=== PATIENT | female | born 1955 | race Caucasian/White ===

== ENCOUNTER 2021-12-11 09:25 | Outpatient (REF) | payer OTHER, SELFPAY ==
--- NOTE | ~2021-12-11 | MM_ITS ---
EXAMINATION: MM SCREENING DIGITAL BREAST TOMOSYNTHESIS, BILATERAL CLINICAL INFORMATION: Screening. Asymptomatic. The lifetime risk of breast cancer based on the Tyrer-Cuzick Model is 8%. COMPARISON: Mammography: 07/17/2016 TECHNIQUE: Digital breast tomosynthesis is performed in both the craniocaudal and mediolateral oblique views along with computer-aided detection (CAD). Synthesized 2D images are generated from the tomosynthesis. Additional left MLO view is provided. FINDINGS: There are scattered areas of fibroglandular density (ACR BI-RADS breast composition Category b). There is fine fibronodular parenchymal pattern similar to prior exam. There is no interval significant mass or architectural abnormality or abnormal calcifications. Heavily calcified mass/cyst is again noted mid lower inner right breast. Just anterior to this is at a small oil cyst with interval benign rim calcifications. The axilla are unremarkable. Skin contours are smooth. MM/MM tomosynthesis screening BI IMPRESSION: No significant changes from prior exam 2015. ASSESSMENT: BI-RADS 2: Benign RECOMMENDATION: Routine annual mammography screening. This patient's information was entered into a reminder system with a target due date for their next mammogram.
== END 2021-12-11 09:26 | disposition home or self-care (01) ==
LOC: HO.MAMMO 09:25
PROVIDERS: PCP General Practice; Visit Provider General Practice
DX: Z12.31 Encounter for screening mammogram for malignant neoplasm of breast (principal)
CPT/HCPCS: 77063; 77067

== ENCOUNTER → 2022-06-28 12:33 | Outpatient (BNVA) | payer MEDICARE, SELFPAY | PROVIDERS: PCP General Practice; Referring Provider General Practice; Visit Provider Nurse Practitioner | DX: K91.5 Postcholecystectomy syndrome (principal); K21.9 Gastro-esophageal reflux disease without esophagitis; K64.9 Unspecified hemorrhoids | CPT/HCPCS: 99202 ==

== ENCOUNTER → 2022-07-26 09:06 | Outpatient (BNVA) | payer MEDICARE, MEDICAID, SELFPAY | PROVIDERS: PCP General Practice; Referring Provider General Practice; Visit Provider Nurse Practitioner | DX: K91.5 Postcholecystectomy syndrome (principal); R21 Rash and other nonspecific skin eruption; K21.9 Gastro-esophageal reflux disease without esophagitis; D12.6 Benign neoplasm of colon, unspecified | CPT/HCPCS: 99212 ==

== ENCOUNTER 2022-08-10 12:54 | Emergency (ER) | payer MEDICARE, MEDICAID, SELFPAY ==
--- NOTE | ~2022-08-10 | XR_ITS ---
EXAMINATION: XR ankle RT 2V CLINICAL INFORMATION: Reason for Exam post reduction COMPARISON: None. TECHNIQUE: AP, lateral, and oblique views of the ankle XR/XR ankle RT 2V FINDINGS/IMPRESSION: * Overlying casting material limits evaluation of fine bony detail. There has been interval reduction of the previously seen foot and ankle dislocation, now in anatomic alignment. * Diffuse soft tissue swelling about the ankle. * Redemonstration of the previously seen fracture of the base of the fifth metatarsal. Previously described subtle lucency in the calcaneus is not appreciated on this exam.
--- NOTE | ~2022-08-10 | XR_ITS ---
EXAMINATION: XR ankle RT min 3V, XR foot RT 2V CLINICAL INFORMATION: Reason for Exam R ANKLE INJURY COMPARISON: None. TECHNIQUE: AP, lateral, and oblique views of the ankle and 2 views of the foot XR/XR foot RT 2V FINDINGS/IMPRESSION: * Talonavicular, tibiotalar and subtalar dislocation. * Mildly displaced avulsion fracture of the base of the fifth metatarsal. * Question of possible subtle lucency through the calcaneus however only appreciated on this single view which could potentially reflect nondisplaced calcaneal fracture. * Given constellation of findings, recommend CT foot for further evaluation.
--- NOTE | ~2022-08-10 | CT_ITS ---
EXAMINATION: CT SCAN OF THE RIGHT ANKLE CLINICAL INFORMATION: Evaluate for calcaneal fracture trauma. COMPARISON: X-rays of the right ankle and foot performed earlier the same day. TECHNIQUE: CT scan of the right ankle was performed with reconstruction imaging performed at the acquisition workstation. FINDINGS: The alignment of the tarsal bones remains intact after reduction of talar dislocation There is a small osseous fragment abutting the posterior medial aspect of the talus compatible with a small avulsion fracture, age indeterminant. This fragment measures 6 x 2 x 7 mm. Additional osseous fragments distal to the fibula more likely reflect ossicles than acute fracture fragments. The calcaneus is intact. No fracture. Small calcaneal spur. There is a nondisplaced/minimally displaced fracture of the base of the 5th metatarsal. The fracture gap measures up to 1.5 mm. No additional fractures. There is a small focus of gas in the subcutaneous soft tissues anteriorly at the level of the midfoot of the overlying skin appears intact. 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 There is generalized circumferential increased density anterior laterally. This could reflect a combination of edema and soft tissue contusion/hematoma. CT/CT ankle RT wo IV con IMPRESSION: Small fracture fragment abutting the posterior medial aspect of the talus compatible with avulsion fracture, age indeterminant. Given recent dislocation this is likely acute. No calcaneal fracture. Fracture of the base of the 5th metatarsal. Arthrosis of the midfoot. Subcutaneous abnormalities compatible with edema and soft tissue contusion. Trace gas within the dorsal soft tissues raising question of subtle soft tissue laceration not clearly identified.
--- NOTE | ~2022-08-10 | XR_ITS ---
EXAMINATION: XR ankle RT min 3V, XR foot RT 2V CLINICAL INFORMATION: Reason for Exam R ANKLE INJURY COMPARISON: None. TECHNIQUE: AP, lateral, and oblique views of the ankle and 2 views of the foot XR/XR ankle RT min 3V FINDINGS/IMPRESSION: * Talonavicular, tibiotalar and subtalar dislocation. * Mildly displaced avulsion fracture of the base of the fifth metatarsal. * Question of possible subtle lucency through the calcaneus however only appreciated on this single view which could potentially reflect nondisplaced calcaneal fracture. * Given constellation of findings, recommend CT foot for further evaluation.
[2022-08-10 13:01] VITALS: BP 147/87; PULSE 100; RESP 16; TEMP 36; O2SAT 95; BMI 26.5
[2022-08-10 13:56] LABS: MANUAL DIFF FLAG NO
[2022-08-10 13:58] LABS: Basophils Absolute Auto 0.1 X10*3/uL (0.0-0.2); Basophils Percent Auto 0.5 % (0-2); Eosinophils Absolute Auto 0.1 X10*3/uL (0.0-0.4); Hematocrit 39.4 % (37.0-47.0); Imm Gran Abs Auto 0.04 X10*3/uL (0.00-0.03); Imm Gran Pct Auto 0.3 % (0.0-0.4); Mean Corpuscular Hemoglobin 30.2 pg (27.0-33.0); Mean Corpuscular Volume 91.6 fL (80.0-98.0); Monocytes Absolute Auto 0.7 X10*3/uL (0.1-1.2); Neutrophils Percent Auto 67.2 % (45-73); Platelet Count 402 X10*3/uL (160-400); Red Cell Distribution Width 13.1 % (11.0-16.0)
[2022-08-10] MEDS: Morphine Sulfate 4 MG/ML CARTRIDGE IVPUSH (13:59)
[2022-08-10] MEDS: ondansetron HCL 4 MG/2 ML VIAL IVPUSH (13:59)
[2022-08-10] MEDS: Lidocaine HCl 1 % MPF 2 ML VIAL INFILTRATI (14:02)
[2022-08-10 14:10] LABS: Anion Gap 17 (12-20); Blood Urea Nitrogen 14 mg/dL (9-16); Calcium 9.2 mg/dL (8.4-10.2); Carbon Dioxide 23 mmol/L (22-29); Chloride 106 mmol/L (96-108); Creatinine Clr Calc Pharmacy 68.4; Estimated Glomerular Filt Rate > 60; Glucose Random 133 mg/dL (60-115); Potassium 4.2 mmol/L (3.3-5.1); Sodium 142 mmol/L (135-145)
--- NOTE | 2022-08-10 14:12 | ED.LOWEXIN ---
HPI - Extremity Injury (Lower) General Chief Complaint: Extremity Injury, Lower Stated Complaint: R ANKLE INJ Time Seen by Provider: 08/10/22 13:19 Related Data Home Medications Medication Instructions Recorded Confirmed acetaminophen 500 mg tablet 500 - 1,000 mg PO Q8H PRN 06/28/22 albuterol sulfate 90 mcg/actuation 2 puff inhalation Q4H PRN 06/28/22 aerosol inhaler (Ventolin HFA) fluticasone 250 mcg-salmeterol 50 1 ea inhalation BID 06/28/22 mcg/dose blistr powdr for inhalation fluticasone propionate 50 1 spray intranasal DAILY PRN 06/28/22 mcg/actuation nasal allergies spray,suspension ipratropium 0.5 mg-albuterol 3 mg ml inhalation Q6H PRN 06/28/22 (2.5 mg base)/3 mL nebulization soln loratadine 10 mg tablet 10 mg PO DAILY PRN allergies 06/28/22 omeprazole 20 mg capsule,delayed 20 mg PO DAILY 06/28/22 release sennosides 8.6 mg tablet (senna) 8.6 mg PO DAILY PRN constipation 06/28/22 trazodone 100 mg tablet 50 - 100 mg PO BEDTIME PRN 06/28/22 venlafaxine 150 mg 150 mg PO QAM 06/28/22 capsule,extended release 24 hr zolpidem 5 mg tablet 5 mg PO BEDTIME 06/28/22 Previous Rx's Medication Instructions Recorded sucralfate 1 gram tablet (Carafate) 2 g PO DAILY #60 tabs 07/25/22 fexofenadine 180 mg tablet 180 mg PO DAILY #30 tabs 07/26/22 (Diana Allergy) hydrocortisone 2.5 % topical 1 appl topical BID-TID PRN skin 07/26/22 ointment irritation #20 grams Allergies Allergy/AdvReac Type Severity Reaction Status Date / Time benedryl Allergy Mild rash Uncoded 07/26/22 09:48 cholestyramine AdvReac Intermediate rash Uncoded 07/26/22 09:22 PMFSH Past Medical History Surgical History H/O section H/O colonoscopy H/O total hysterectomy History of esophagogastroduodenoscopy (EGD) History of hysterectomy Hx of cholecystectomy Social History Social History Alcohol intake: never Patient Tobacco Use Status: Never used Tobacco Advance Directives: No Advance Directives Information Provided: Yes Physical Exam Vital Signs: Vital Signs: Last Vital Signs Temp 96.8 F 08/10/22 13:01 Pulse 100 08/10/22 13:01 Resp 16 08/10/22 13:01 BP 147/87 H 08/10/22 13:01 Pulse Ox 95 08/10/22 13:01 O2 Del Method 08/10/22 13:01 BMI result Body Mass Index 26.5 MDM - Extremity Injury (Lower) Lab Data Result diagrams: 08/10/22 13:51 08/10/22 13:51 Labs: Lab Results 08/10/22 08/10/22 Range/Units 13:51 13:51 WBC 12.0 H (4.8-10.8) X10*3/uL RBC 4.30 (4.20-5.50) X10*6/uL Hgb 13.0 (12.0-16.0) g/dl Hct 39.4 (37.0-47.0) % MCV 91.6 (80.0-98.0) fL MCH 30.2 (27.0-33.0) pg MCHC 33.0 (31.0-35.0) g/dl RDW 13.1 (11.0-16.0) % Plt Count 402 H (160-400) X10*3/uL MPV 9.0 L (9.4-12.3) fL Immature Gran % (Auto) 0.3 (0.0-0.4) % Neut % (Auto) 67.2 (45-73) % Lymph % (Auto) 25.0 (20-40) % [place] % (Auto) 6.0 (2-11) % Eos % (Auto) 1.0 (0-4) % Baso % (Auto) 0.5 (0-2) % Lymph # (Auto) 3.0 (1.2-4.9) X10*3/uL [place] # (Auto) 0.7 (0.1-1.2) X10*3/uL Eos # (Auto) 0.1 (0.0-0.4) X10*3/uL Baso # (Auto) 0.1 (0.0-0.2) X10*3/uL Abs Immat Gran (auto) 0.04 H (0.00-0.03) X10*3/uL Absolute Neuts (auto) 8.0 (2.0-8.3) x10*3/uL Absolute Nucleated RBC 0.000 (0.0-0.012) X10*3/uL Nucleated RBC % (auto) 0.0 (0.0-0.2) /100WBC Sodium 142 (135-145) mmol/L Potassium 4.2 (3.3-5.1) mmol/L Chloride 106 (96-108) mmol/L Carbon Dioxide 23 (22-29) mmol/L Anion Gap 17 (12-20) BUN 14 (9-16) mg/dL Creatinine 0.70 (0.5-1.4) mg/dL Estim Creat Clear Calc 68.4 Estimated GFR > 60 Random Glucose 133 H (60-115) mg/dL Calcium 9.2 (8.4-10.2) mg/dL Procedures Orthopedic Joint Reduction Joint #1: Time Out Performed: Yes Side: right Joint Reduction Location: ankle Analgesia: hematoma block Local Anesthesia: lidocaine 1% Amount of anesthesic used (mL): 10 Technique used: traction/counter-traction Post-reduction neuro exam: intact Post-reduction vascular: intact Post Reduction X-Ray Obtained: Yes Post Reduction X-Ray Results: reduced Splint Applied: Yes Patient Tolerated Procedure: well Discharge Plan Discharge Prescriptions: No Action sucralfate [Carafate] 1 gram tablet 2 g PO DAILY Qty: 60 3RF omeprazole 20 mg capsule,delayed release(DR/EC) 20 mg PO DAILY sennosides [senna] 8.6 mg tablet 8.6 mg PO DAILY PRN (Reason: constipation) trazodone 100 mg tablet 50 - 100 mg PO BEDTIME PRN fluticasone propion-salmeterol 250-50 mcg/dose blister with device 1 ea inhalation BID loratadine 10 mg tablet 10 mg PO DAILY PRN (Reason: allergies) fluticasone propionate 50 mcg/actuation spray,suspension 1 spray intranasal DAILY PRN (Reason: allergies) albuterol sulfate [Ventolin HFA] 90 mcg/actuation HFA aerosol inhaler 2 puff inhalation Q4H PRN zolpidem 5 mg tablet 5 mg PO BEDTIME acetaminophen 500 mg tablet 500 - 1,000 mg PO Q8H PRN venlafaxine 150 mg capsule,extended release 24hr 150 mg PO QAM ipratropium-albuterol 0.5 mg-3 mg(2.5 mg base)/3 mL solution for nebulization inhalation Q6H PRN fexofenadine [Diana Allergy] 180 mg tablet 180 mg PO DAILY Qty: 30 3RF hydrocortisone 2.5 % ointment 1 appl topical BID-TID PRN (Reason: skin irritation) Qty: 20 0RF
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
== END 2022-08-10 20:34 | disposition home or self-care (01) ==
PROVIDERS: Nurse Practitioner Family; Emergency Provider Emergency Medicine; PCP General Practice
DX: S93.04XA Dislocation of right ankle joint, initial encounter (principal); S92.351A Displaced fracture of fifth metatarsal bone, right foot, initial encounter for closed fracture; V18.0XXA Pedal cycle driver injured in noncollision transport accident in nontraffic accident, initial encounter; Y93.55 Activity, bike riding; Y92.414 Local residential or business street as the place of occurrence of the external cause; Y99.9 Unspecified external cause status
CPT/HCPCS: 27840; 36415; 64450; 73600; 73610; 73620; 73700; 80048; 85025; 96374; 96375; 99281; 99284; J2270; J2405

== ENCOUNTER → 2022-08-15 10:42 | Outpatient (BNVA) | payer MEDICARE, MEDICAID, SELFPAY | PROVIDERS: PCP General Practice; Visit Provider Physician Assistant | DX: S93.04XA Dislocation of right ankle joint, initial encounter (principal) | CPT/HCPCS: 29405; 99202 ==

== ENCOUNTER 2022-09-16 | Outpatient (REF) | payer MEDICARE, MEDICAID, SELFPAY ==
--- NOTE | ~2022-09-16 | XR_ITS ---
EXAMINATION: XR ANKLE, RIGHT CLINICAL INFORMATION: Pain COMPARISON: Previous x-ray and chest CT July 2022 TECHNIQUE: AP, lateral, and mortise views of the right ankle. FINDINGS: There is osteopenia. There is periosteal reaction seen on the lateral view adjacent to the posterior talus and posterior talar calcaneal joint. There is a minimally displaced fracture transverse fracture of the base of the fifth metatarsal bone. This appears unchanged. There are mild degenerative changes of the midfoot. There are calcaneal spurs. There is diffuse soft tissue swelling. XR/XR ankle RT min 3V IMPRESSION: Osteopenia. Cortical thickening or periosteal reaction seen on the lateral view adjacent to the posterior talus and posterior talar calcaneal joint. Unchanged minimally displaced fracture of the base of the fifth metatarsal bone.
== END 2022-09-16 00:01 ==
LOC: HO.HOSX
PROVIDERS: Visit Provider Physician Assistant
DX: M25.571 Pain in right ankle and joints of right foot (principal)
CPT/HCPCS: 73610

== ENCOUNTER 2022-10-14 | Outpatient (REF) | payer MEDICARE, MEDICAID, SELFPAY ==
--- NOTE | ~2022-10-14 | XR_ITS ---
XR/XR ankle RT min 3V IMPRESSION: 1. Nondisplaced fracture base fifth metatarsal unchanged in alignment. 2. No acute ankle fracture or dislocation. Bulky calcaneal spurs. EXAMINATION: XR ANKLE, RIGHT CLINICAL INFORMATION: Fractures, follow-up. COMPARISON: Right ankle radiographs 09/16/2022, CT right ankle 09/16/2022, radiographs right ankle and foot 08/10/2022. TECHNIQUE: AP, lateral, and mortise views of the right ankle. FINDINGS: Ankle mortise is symmetric. No acute fracture or dislocation. Nondisplaced fracture base fifth metatarsal unchanged in alignment. There are bulky posterior and plantar calcaneal spurs.
== END 2022-10-14 00:01 ==
LOC: HO.HOSX
PROVIDERS: Visit Provider Physician Assistant
DX: S92.354A Nondisplaced fracture of fifth metatarsal bone, right foot, initial encounter for closed fracture (principal); S93.04XA Dislocation of right ankle joint, initial encounter
CPT/HCPCS: 73610; 99212

== ENCOUNTER 2023-08-29 10:05 | Outpatient (REF) | payer MEDICARE, MEDICAID, SELFPAY ==
[2023-08-29 11:40] LABS: Estimated Average Glucose 103 mg/dL; Hemoglobin A1c % 5.2 % (<6.0)
[2023-08-29 12:02] LABS: Alanine Aminotransferase 13 U/L (0-31); Albumin Level 4.2 g/dL (3.5-5.0); Alkaline Phosphatase 67 U/L (39-117); Anion Gap 14 (12-20); Aspartate Amino Transferase 16 U/L (5-31); Bilirubin Total 0.3 mg/dL (0.0-1.0); Blood Urea Nitrogen 14 mg/dL (9-16); Calcium 9.4 mg/dL (8.4-10.2); Carbon Dioxide 26 mmol/L (22-29); Chloride 106 mmol/L (96-108); Cholesterol 165 mg/dL (<200); Estimated Glomerular Filt Rate > 60; Glucose Random 99 mg/dL (60-115); HDL Cholesterol 55 mg/dL (>40); LDL Cholesterol Calculated 84 mg/dL (<100); Potassium 4.6 mmol/L (3.3-5.1); Sodium 141 mmol/L (135-145); Total Protein 7.4 g/dL (6.5-8.0); Triglycerides 130 mg/dL (<150)
== END 2023-08-29 10:06 | disposition home or self-care (01) ==
LOC: HO.HHCL 10:05
PROVIDERS: Visit Provider General Practice
DX: Z00.00 Encounter for general adult medical examination without abnormal findings (principal)
CPT/HCPCS: 36415; 80053; 80061; 83036

== ENCOUNTER 2024-02-03 08:30 | Outpatient (REF) | payer OTHER, SELFPAY ==
--- NOTE | ~2024-02-03 | MM_ITS ---
EXAMINATION: MM SCREENING DIGITAL BREAST TOMOSYNTHESIS, BILATERAL CLINICAL INFORMATION: Screening. Asymptomatic. COMPARISON: Mammography: This study is compared with prior exams dating back to 2021. TECHNIQUE: Digital breast tomosynthesis is performed in both the craniocaudal and mediolateral oblique views along with computer-aided detection (CAD). Synthesized 2D images are generated from the tomosynthesis. FINDINGS: There are scattered areas of fibroglandular density (ACR BI-RADS breast composition Category b). There are no significant masses, abnormal calcifications, or other abnormalities. There are few, coarse benign calcifications in the lower inner quadrant of the right breast. MM/MM tomosynthesis screening BI IMPRESSION: No mammographic evidence of malignancy. ASSESSMENT: BI-RADS BI-RADS 2 - Benign Findings RECOMMENDATION: Routine annual mammography screening. 1 year F/U This examination should not preclude the clinical evaluation of a suspicious palpable abnormality. This patient's information was entered into a reminder system with a target due date for their next mammogram.
== END 2024-02-03 08:31 | disposition home or self-care (01) ==
LOC: HO.MAMMO 08:30
PROVIDERS: PCP General Practice; Visit Provider General Practice
DX: Z12.31 Encounter for screening mammogram for malignant neoplasm of breast (principal)
CPT/HCPCS: 77063; 77067

== ENCOUNTER → 2024-02-03 08:45 | Outpatient (BNV) | payer OTHER, SELFPAY | PROVIDERS: PCP General Practice; Visit Provider Radiology Diagnostic Radiology | DX: Z12.31 Encounter for screening mammogram for malignant neoplasm of breast (principal) | CPT/HCPCS: 77063; 77067 ==

== ENCOUNTER 2025-05-26 19:22 | Emergency (ER) | payer OTHER, SELFPAY ==
--- NOTE | ~2025-05-26 | XR_ITS ---
CLINICAL HISTORY: known covid 1 view chest x-ray Comparison: None provided Findings: No consolidation or effusion. Normal size heart. No acute fracture. IMPRESSION: 1. No acute findings. This document has been electronically signed by: Guero Cruz MD on 05/26/2025 22:03:46
[2025-05-26 19:46] VITALS: BP 161/80; PULSE 75; RESP 16; TEMP 37.1; O2SAT 96; BMI 26.5
--- OUTSIDE RECORDS SUMMARY | 2025-05-26 20:11 | XMS_ITS | Encounter Summary ---
Author Organization [facility] Address [address] [place] [address] Care Team Providers Care Molecular Pathologist Name Role Phone Jamar Conley NP, Erica Primary Care Provider Encounter Details Date Type Department Care Team (Late st Contact Info) Description 03/26/2025 Lab Requisition [facility] - Main Lab [address] [place] [address] Dipika Roldan NP [address] [place] [phone] Social History Tobacco Use Types Packs/Day Years Used Date Smoking Tobacco: Never Assessed Comments Unknown Sex and Gender Information Value Date Recorded Sex Assigned at Not on file Legal Sex Female 10:40 AM EDT Gender Identity Not on file Sexual Orientation Not on file documented as of this encounter Plan of Treatment Not on file documented as of this encounter Visit Diagnoses Not on filedocumented in this encounter Care Teams Molecular Pathologist Relationship Specialty Start Date End Date Dipika Roldan NP [address] [place] [id number] PCP - General Psychiatry 03/26/25 documented as of this encounter
[2025-05-26 22:05] VITALS: BP 165/89; PULSE 73; RESP 16; TEMP 36.8; O2SAT 96
--- NOTE | 2025-05-26 22:30 | ED.GENADULT ---
HPI - General Adult General Chief complaint: Upper Respiratory Symptoms Stated complaint: covid+/fever/sob still Time Seen by Provider: 05/26/25 20:27 Source: patient and family Limitations: language barrier History of Present Illness ED Provider: Catherine Figueroa PA-C HPI narrative: 70-year-old female with a history of GERD, constipation, asthma, depression and anxiety who presents with viral syndrome. Patient was diagnosed with the COVID-19 today by primary care. Associated generalized body aches, headache, congestion, ear pressure and dry cough. Related Data Home Medications ?Medication ?Instructions ?Recorded ?Confirmed acetaminophen 500 mg tablet 500 - 1,000 mg PO Q8H PRN 06/28/22 albuterol sulfate 90 mcg/actuation 2 puff inhalation Q4H PRN 06/28/22 aerosol inhaler (Ventolin HFA) fluticasone 250 mcg-salmeterol 50 1 ea inhalation BID 06/28/22 mcg/dose blistr powdr for inhalation fluticasone propionate 50 1 spray intranasal DAILY PRN 06/28/22 mcg/actuation nasal allergies spray,suspension ipratropium 0.5 mg-albuterol 3 mg ml inhalation Q6H PRN 06/28/22 (2.5 mg base)/3 mL nebulization soln loratadine 10 mg tablet 10 mg PO DAILY PRN allergies 06/28/22 omeprazole 20 mg capsule,delayed 20 mg PO DAILY 06/28/22 release sennosides 8.6 mg tablet (senna) 8.6 mg PO DAILY PRN constipation 06/28/22 trazodone 100 mg tablet 50 - 100 mg PO BEDTIME PRN 06/28/22 venlafaxine 150 mg 150 mg PO QAM 06/28/22 capsule,extended release 24 hr zolpidem 5 mg tablet 5 mg PO BEDTIME 06/28/22 Previous Rx's ?Medication ?Instructions ?Recorded sucralfate 1 gram tablet (Carafate) 2 g (2 x 1 gram) PO DAILY #60 tabs 07/25/22 fexofenadine 180 mg tablet 180 mg PO DAILY #30 tabs 07/26/22 (Diana Allergy) hydrocortisone 2.5 % topical 1 appl topical BID-TID PRN skin 07/26/22 ointment irritation #20 grams oxycodone 5 mg tablet 5 mg PO Q8H PRN pain #10 tabs 08/10/22 Allergies Allergy/AdvReac Type Severity Reaction Status Date / Time benedryl Allergy Mild rash Uncoded 05/26/25 19:46 cholestyramine AdvReac Intermediate rash Uncoded 05/26/25 19:46 Review of Systems Review of Systems: Yes all other systems are reviewed and are negative Constitutional: Constitutional: Reports fatigue, Reports fever(s), Reports headache(s) and Reports malaise ENT: Reports otalgia, Reports headache(s) and Reports nasal discharge Cardiovascular: Cardiovascular: Denies chest pain and Denies dyspnea Respiratory: Respiratory: Denies chest congestion, Reports cough, Denies dyspnea and Denies wheezing Gastrointestinal: Gastrointestinal: Denies abdominal pain, Denies nausea and Denies vomiting Neurologic: Reports headache(s) Endocrine: Endocrine: Reports fatigue Allergic/Immunologic: Allergic/Immunologic: Denies wheezing PMFSH Past Medical History Attestation statement: The following information was validated with the patient. Surgical History H/O section H/O colonoscopy H/O total hysterectomy History of esophagogastroduodenoscopy (EGD) History of hysterectomy Hx of cholecystectomy Social History Social History Alcohol intake: never Patient Tobacco Use Status: Never used Tobacco Smoked in Last 30 Days: No Use of substances other than those prescribed or required for medical reasons: No Advance Directives: No Advance Directives Information Provided: No Current occupational status: disabled Current occupation: right hand dominant Physical Exam ED Vital Signs: Vital Signs - 24 hr 05/26/25 19:46 05/26/25 22:05 Temperature 98.8 F 98.3 F Pulse Rate 75 73 Respiratory Rate 16 16 Blood Pressure 161/80 H 165/89 H Pulse Oximetry 96 96 Oxygen Delivery Method Room Air Room Air BMI result Body Mass Index 26.5 Const Other: Alert well-appearing Orientation/consciousness: patient oriented x3 HENMT Other: Bilateral TMs are dull, without overlying erythema, external ear canals are without erythema or exudate, no tragal tenderness Resp Other: No wheezing Effort & Inspection: normal respiratory effort Cardio Other: Normal peripheral perfusion Skin Other: Warm dry no rash Neuro General: patient oriented x3, gait normal, no focal motor deficits and CN's II-XI intact bilaterally Psych Other: Cooperative Medical Decision Making Medical Decision Making MDM Narrative: 70-year-old female with a history of GERD, constipation, asthma, depression and anxiety who presents with viral syndrome. Patient was diagnosed with the COVID-19 today by primary care. Associated generalized body aches, headache, congestion, ear pressure and dry cough. Problem: Age History: Per patient's daughter I have considered the following differential diagnoses: Viral syndrome, pneumonia, bronchitis, asthma exacerbation Plan: Unclear why the patient comes to the emergency room after seeing her primary care, the daughter tried to deter her. I am ordering a chest x-ray I am not repeating labs, she is not hypoxic. She is not having symptoms of an active asthma exacerbation. I have independently reviewed the following tests: Labs: COVID-19 CXR: 1 view chest x-ray Comparison: None provided Findings: No consolidation or effusion. Normal size heart. No acute fracture. IMPRESSION: 1. No acute findings. Discharge Plan Discharge Clinical Impression: COVID-19 Patient Disposition: Home, Self-Care Instructions: COVID-19 (Coronavirus Disease 2019) (ED), How to Recover from COVID-19 at Home (ED) Additional Instructions: The chest x-ray is clear. In regard to the COVID virus, it is self-limiting. See home care instructions. Rest, increase your fluid intake. If you develop a fever or body aches, you can alternate with [id number] Tylenol 1000 mg taken every 8 hours, alternated with [id number] ibuprofen 600 mg taken every 6 hours with food. Be sure to self isolate for at least 5 days. Prescriptions: No Action sucralfate [Carafate] 1 gram tablet 2 g PO DAILY Qty: 60 3RF oxycodone 5 mg tablet 5 mg PO Q8H PRN (Reason: pain) Qty: 10 0RF Rx Instructions: Partial Fill upon patient request. omeprazole 20 mg capsule,delayed release(DR/EC) 20 mg PO DAILY sennosides [senna] 8.6 mg tablet 8.6 mg PO DAILY PRN (Reason: constipation) trazodone 100 mg tablet 50 - 100 mg PO BEDTIME PRN fluticasone propion-salmeterol 250-50 mcg/dose blister with device 1 ea inhalation BID loratadine 10 mg tablet 10 mg PO DAILY PRN (Reason: allergies) fluticasone propionate 50 mcg/actuation spray,suspension 1 spray intranasal DAILY PRN (Reason: allergies) albuterol sulfate [Ventolin HFA] 90 mcg/actuation HFA aerosol inhaler 2 puff inhalation Q4H PRN zolpidem 5 mg tablet 5 mg PO BEDTIME acetaminophen 500 mg tablet 500 - 1,000 mg PO Q8H PRN venlafaxine 150 mg capsule,extended release 24hr 150 mg PO QAM ipratropium-albuterol 0.5 mg-3 mg(2.5 mg base)/3 mL solution for nebulization inhalation Q6H PRN fexofenadine [Diana Allergy] 180 mg tablet 180 mg PO DAILY Qty: 30 3RF hydrocortisone 2.5 % ointment 1 appl topical BID-TID PRN (Reason: skin irritation) Qty: 20 0RF Print Language: Yakut
[2025-05-26 23:48] VITALS: BP 165/89; PULSE 73; RESP 16; TEMP 36.8; O2SAT 96
== END 2025-05-26 23:49 | disposition home or self-care (01) ==
PROVIDERS: Emergency Provider Emergency Medicine; PCP General Practice
DX: U07.1 COVID-19 (principal); B34.9 Viral infection, unspecified; M79.10 Myalgia, unspecified site; R06.02 Shortness of breath; F41.9 Anxiety disorder, unspecified; R05.9 Cough, unspecified; R51.9 Headache, unspecified; Z79.899 Other long term (current) drug therapy
CPT/HCPCS: 71045; 99283; 99284

== ENCOUNTER → 2025-05-26 20:30 | Outpatient (BNV) | payer OTHER, SELFPAY | PROVIDERS: Emergency Provider Emergency Medicine; PCP General Practice; Visit Provider Radiology Diagnostic Radiology | DX: R51.9 Headache, unspecified (principal) | CPT/HCPCS: 71045 ==

== ENCOUNTER 2025-07-19 09:04 | Outpatient (AMB) | payer OTHER, SELFPAY ==
--- NOTE | 2025-07-19 09:20 | MHC.OFFVIS ---
Vital Signs 07/19/25 09:43 Height 5 ft 2 in Weight 143 lb 4.807 oz BMI 26.2 BP 148/60 H Blood Pressure Location Lt brachial Position Sitting Pulse 70 Intake Visit Reasons: colo screening l/s 07/18 Intake Note: Drea presents to office today for colonoscopy screening. CC: Patient reports that when she eats meats (except for chicken and turkey) and some flours she gets diarrhea. She also c/o a lot of heartburn. Oncology Nurse Navigator Required: Yes Oncology Nurse Navigator Language: Gripper Attacher Name: FLO Shelton Accompanied by: Self / Same As Patient Allergies avocado Allergy (Unknown, Verified 07/19/25 10:09) Rash banana Allergy (Unknown, Verified 07/19/25 10:09) Rash cholestyramine Allergy (Unknown, Verified 07/19/25 10:07) Rash diphenhydramine (From Benadryl) Allergy (Unknown, Verified 07/19/25 10:07) Rash grape Allergy (Unknown, Verified 07/19/25 10:09) Rash seafood Allergy (Unknown, Verified 07/19/25 10:09) Rash Medication List - Last Reconciled 07/19/25 by HALLEY Fuentes acetaminophen 500 - 1,000 mg PO Q8H PRN albuterol sulfate 90 mcg/actuation (Ventolin HFA) 2 puffs inhalation Q4H PRN bisacodyl (Dulcolax (bisacodyl)) 10 mg (2 x 5 mg) PO BEDTIME 2 days brinzolamide-brimonidine 1-0.2 % (Simbrinza) 1 drp ophthalmic (eye) BID calamine-zinc oxide 8-8 % topical cholecalciferol (vitamin D3) 50 mcg PO DAILY fexofenadine (Anali Allergy) 180 mg PO DAILY fluticasone propion-salmeterol 250-50 mcg/dose 1 ea inhalation BID fluticasone propionate 50 mcg/actuation 1 spray intranasal DAILY PRN hydrocortisone 2.5% 1 appl topical BID-TID PRN ipratropium-albuterol 0.5 mg-3 mg(2.5 mg base)/3 mL mL inhalation Q6H PRN latanoprost 0.005% 1 drp ophthalmic (eye) BEDTIME loratadine 10 mg PO DAILY PRN melatonin 3 mg PO BEDTIME omeprazole 20 mg PO DAILY oxycodone 5 mg PO Q8H PRN peg 3350-electrolytes 236-22.74-6.74 -5.86 gram (Golytely) 240 mL PO Q10M 1 day sennosides (senna) 8.6 mg PO BEDTIME sucralfate (Carafate) 2 grams (2 x 1 gram) PO DAILY trazodone 50 - 100 mg PO BEDTIME PRN venlafaxine ER 150 mg PO QAM HPI HPI colo screening l/s 07/18: Details: Assessment & Plan (1) Post-cholecystectomy syndrome: Code(s): K91.5 - Postcholecystectomy syndrome Plan: Israeli #[id number] The cholestyramine caused a rash; shows me a red raised lump on left lateral LE. There is no sign of exudate or 1 that would indicate an infectious process. Also has arm itching but no discernible lesions. We go over allergies, and she says she is allergic to benadryl as well - no other allergies known. Advise her I already sent carafate. She I educate her that if this does not work we can progress to other medications but we have to go to research step therapy process for insurance. She will take taking 2 of the Carafate tablets a day to start. Sending anali and cortisone cream for her itching. She continues on her omeprazole once a day with good control of her GERD. RoV next week as she will be going to [place] August 09 and then returning in October. (2) Rash: Code(s): R21 - Rash and other nonspecific skin eruption (3) GERD (gastroesophageal reflux disease): Code(s): K21.9 - Gastro-esophageal reflux disease without esophagitis (4) Tubular adenoma of colon: Comment: 2018 Ganesh carter repeat [address] Andersen: 1. Rectal bleeding - K62.5 (Primary)2. Tubular adenoma of colon - D12.63. Hemorrhoids - K64.9 S/P colonoscopy. She had a tubular adenoma which was removed. She also had mixed hemorrhoids which are the likely source of her bleeding. In view of the presence of the tubular adenoma, I recommended another colonoscopy in the next 5 years. Code(s): D12.6 - Benign neoplasm of colon, unspecified Medications: New fexofenadine (Anali Allergy) 180 mg PO DAILY 30 tabs 3RF R21 - Rash and other nonspecific skin eruption hydrocortisone 2.5% 1 appl topical BID-TID PRN 20 grams 0RF skin irritation R21 - Rash and other nonspecific skin eruption LABS: There are no labs since 2022 Relevant PMX Asthma Tubular adenoma 2018-Ganesh TODAY'S VISIT [place] #V live Patient has been lost to follow-up since 07/26/2022 Her asthma is well controlled and she denies any cardiac problems. No prior problems with anesthesia or sedation She endorses recent dyspepsia and postprandial diarrhea. No ID problems. She had a tubular adenoma [place] [address] Andersen. Again, it seems that her symptoms are most consistent with post cholecystectomy syndrome. In the past she was allergic cholestyramine developing an itchy rash. I had tried moving on to Carafate and then the patient was lost to follow-up. She admits to follow-up and will start again with Carafate she is educated to take it in the middle of the day so it does not block the absorption of other medications. She can titrate it between half a tablet to 2 tablets depending on her response. She occasionally gets constipation for which she utilizes senna. Return office visit in 3 weeks [facility] Surgical History Hx of cholecystectomy H/O total hysterectomy H/O section History of esophagogastroduodenoscopy (EGD) H/O colonoscopy History of hysterectomy Social History Alcohol intake: never Patient Tobacco Use Status: Never used Tobacco Current occupational status: disabled Current occupation: right hand dominant Review of Systems Const Denies fatigue, Denies fever(s), Denies night sweats, Denies poor appetite and Denies weight loss Eyes Details: glasses Reports requires corrective lenses ENT Reports Normal hearing present, Denies dental pain, Denies dysphagia, Denies hearing loss, Denies mouth pain, Denies odynophagia, Denies throat swelling, Denies tongue swelling and Reports other (Dentition adequate) Card Reports no additional complaints Resp Reports no additional complaints GI Details: Denies abdominal pain, Denies melena, Denies bloating, Denies hematochezia, Denies constipation, Denies GI cramping, Denies dysphagia, Denies excessive flatus, Denies early satiety, Reports dyspepsia, Reports heartburn, Reports diarrhea, Denies nausea, Denies odynophagia, Denies vomiting and Denies hematemesis Skin/Breast Denies pruritus, Denies lesions, Denies rash and Denies jaundice Neuro Reports Normal hearing present and Denies Abnormal speech present Endo Denies fatigue Aller/Immun Denies throat swelling and Denies tongue swelling Physical Exam Vital Signs: Last Vital Signs Pulse 70 07/19/25 09:43 BP 148/60 H 07/19/25 09:43 BMI result Body Mass Index 26.2 Const General: cooperative, no acute distress, well developed and well groomed Nutritional Appearance: average body habitus and well nourished Orientation/consciousness: oriented to person, oriented to place and oriented to time Limitations: language barrier HEENT Head: Yes normocephalic and Yes atraumatic Eyes General: appearance normal, both eyes and all related structures Pupils: Equal, round and reactive pupils present Neck Neck: Yes normal visual inspection and Yes no lymphadenopathy Thyroid: Thyroid normal Resp Effort & Inspection: normal respiratory effort and able to speak in complete sentences Auscultation: clear to auscultation bilaterally Cardio Rate: regular rate Rhythm: regular rhythm Heart sounds: Normal, physiologic split S2 sound present Peripheral pulses: radial pulses present and posterior tibial pulses present GI Inspection: No distended, No Abdominal panniculus present and Yes obesity Palpation (GI): Soft to palpation, nontender, no guarding, not rigid and No hepatosplenomegaly present Percussion: Yes normal to percussion Auscultation: normal bowel sounds Rectal Exam - Female: deferred Abdomen image:  1. surgical scar Skin General skin exam: no rashes or lesions noted, turgor normal, skin not dry, no jaundice, No spider nevi and no striae Rashes: no rashes Nails: normal Neuro General: oriented to person, oriented to place and oriented to time Cranial nerves: Yes Equal, round and reactive pupils present and Yes Normal hearing present Speech: No Abnormal speech present Extrem General: Yes normal to inspection, No clubbing, No cyanosis and No edema Psych Appearance: grossly normal and well kempt Mental Status: mental status grossly normal Speech and movement: Normal speech and movement present Affect: normal affect Attitude: cooperative Thought process: Normal thought process present and not confabulating Thought content: Normal thought content present Insight: Fair insight present (Psych) and Limited insight present (Psych) Judgement: Fair judgement present (Psych) and Limited judgement present (Psych) Assessment & Plan Assessment & Plan (1) Post-cholecystectomy syndrome: Code(s): K91.5 - Postcholecystectomy syndrome Category: Medical (2) GERD (gastroesophageal reflux disease): Code(s): K21.9 - Gastro-esophageal reflux disease without esophagitis Category: Medical (3) Tubular adenoma of colon: Comment: Ganesh walter repeat [address] Andersen: 1. Rectal bleeding - K62.5 (Primary)2. Tubular adenoma of colon - D12.63. Hemorrhoids - K64.9 S/P colonoscopy. She had a tubular adenoma which was removed. She also had mixed hemorrhoids which are the likely source of her bleeding. In view of the presence of the tubular adenoma, I recommended another colonoscopy in the next 5 years. Code(s): D12.6 - Benign neoplasm of colon, unspecified Category: Medical (4) Pre-op examination: Code(s): Z01.818 - Encounter for other preprocedural examination Category: Medical Plan Patient has been lost to follow-up since 07/26/2022 Her asthma is well controlled and she denies any cardiac problems. No prior problems with anesthesia or sedation She endorses recent dyspepsia and postprandial diarrhea. No ID problems. She had a tubular adenoma [place] [address] Andersen. Again, it seems that her symptoms are most consistent with post cholecystectomy syndrome. In the past she was allergic cholestyramine developing an itchy rash. I had tried moving on to Carafate and then the patient was lost to follow-up. She admits to follow-up and will start again with Carafate she is educated to take it in the middle of the day so it does not block the absorption of other medications. She can titrate it between half a tablet to 2 tablets depending on her response. She occasionally gets constipation for which she utilizes senna. Return office visit in 3 weeks Orders: Orders Comprehensive Met. Panel Today Z01.818 - Encounter for other preprocedural examination Complete Blood Count Auto Diff Today Z01.818 - Encounter for other preprocedural examination Referrals GI Procedure Notification D12.6 - Benign neoplasm of colon, unspecified, Z01.818 - Encounter for other preprocedural examination Medications: New bisacodyl (Dulcolax (bisacodyl)) 10 mg (2 x 5 mg) PO BEDTIME 4 tabs 0RF 2 days peg 3350-electrolytes 236-22.74-6.74 -5.86 gram (Golytely) until fecal effluent is clear; do not exceed a total volume of 2,000 mL 240 mL PO Q10M 4,000 mL 0RF 1 day Z12.11 - Encounter for screening for malignant neoplasm of colon Refilled sucralfate (Carafate) 2 grams (2 x 1 gram) PO DAILY 60 tabs 3RF K91.5 - Postcholecystectomy syndrome Coding Level of Care Code New Pt Level 3 (38869) Diagnoses Post-cholecystectomy syndrome K91.5 GERD (gastroesophageal reflux disease) K21.9 Tubular adenoma of colon D12.6 Pre-op examination Z01.818
[2025-07-19 09:43] VITALS: BP 148/60; PULSE 70; BMI 26.2
--- OUTSIDE RECORDS SUMMARY | 2025-07-19 10:29 | XMS_ITS | Encounter Summary ---
Author Organization [facility] Address [address] [place] [address] Care Team Providers Care Washhouse Worker Name Role Phone Jamar Conley NP, Erica Primary Care Provider [phone] Encounter Details Date Type Department Care Team (Late st Contact Info) Description 03/26/2025 Lab Requisition [facility] - Main Lab [address] [place] [address] Dipika Roldan NP [address] [place] [phone] Social History Tobacco Use Types Packs/Day [...] on filedocumented in this encounter Care Teams Washhouse Worker Relationship Specialty Start Date End Date Dipika Roldan NP [address] [place] [id number] PCP - General Psychiatry 03/26/25 documented as of this encounter
--- OUTSIDE RECORDS SUMMARY | 2025-07-19 10:29 | XMS_ITS | Clinical Summary ---
Author Organization [employer] Address [address] [place] [address] 7[address] [place] [address] Care Team Providers Care Land Leasing Examiner Name Role Phone Marlys Palma MD Primary Care Provider [phone] Allergies No known active allergies Medications Blood Pressure Monitoring (Omron 3 Series BP Monitor) device USE TO CHECK BLOOD PRESSURE EVERY DAY DIRECTED 022 Active senna (Senokot) 8.6 MG tabletIndicatio ns:Chronic constipation TAKE 1 TABLET BY MOUTH EVERY DAY NEEDED FOR CONSTIPATION 90 tablet 3 025 Active Simbrinza 1-0.2 % suspensionIndic ations:Glaucoma of both eyes, unspecified glaucoma type instill 1 drop in each eye once daily 025 Active latanoprost (Xalatan) 0.005 % ophthalmic solutionIndicat ions:Glaucoma of both eyes, unspecified glaucoma type instill 1 drop in each eye at bedtime 025 Active albuterol 108 (90 Base) MCG/ACT inhalerIndicati ons:Moderate persistent asthma with exacerbation Inhale 2 puffs every 4 (four) hours if needed for wheezing or shortness of breath. 8.5 g 11 025 Active cholecalciferol (D3 Super Strength) 50 MCG (2000 UT) capsule Take 1 capsule (50 mcg) by mouth Once per day. 90 capsule 3 025 Active fluticasone (Flonase) 50 MCG/ACT nasal sprayIndication s:Fluid level behind tympanic membrane of both ears INSTILL 1 SPRAY IN EACH NOSTRIL ONCE DAILY NEEDED FOR FOR ALLERGY 16 g 11 05/20/2 025 Active Fluticasone-Steven meterol 250-50 MCG/ACT aerosol powderIndicatio ns:Moderate persistent asthma with exacerbation Inhale 1 puff Once per day. 60 each Active ipratropium-alb uterol (Duo-Neb) 0.5-2.5 mg/3 mL nebulizer solutionIndicat ions:Moderate persistent asthma with exacerbation Take 3 mL by nebulization every 6 (six) hours. 180 mL Active omeprazole (PriLOSEC) [address] capsule Take 1 capsule (20 mg) by mouth before breakfast. Do not crush or chew. 90 capsule Active traZODone (Desyrel) 100 MG tablet Take 1 tablet (100 mg) by mouth if needed at bedtime for sleep. 90 tablet Active venlafaxine XR (Effexor XR) 150 MG 24 hr capsule Take 1 capsule (150 mg) by mouth in the morning. 90 capsule Active Acetaminophen Extra Strength 500 MG tabletIndicatio ns:Other chronic pain Take 1-2 tablets (500-1,000 mg) by mouth every 8 (eight) hours if needed (pain, fever). 90 tablet Active cyclobenzaprine (Flexeril) 10 MG tabletIndicatio ns:Neck sprain, initial encounter 1 tablet p.o. twice daily x 3 days then 1 tablet p.o. nightly as needed pain x 10 more days 16 tablet Active loratadine (Claritin) 10 MG tabletIndicatio ns:Bee sting, undetermined intent, initial encounter Take 1 tablet (10 mg) by mouth if needed each day for allergies. 90 tablet Active calamine lotion Apply topically if needed for itching. 118 mL Active loratadine (Claritin) 10 MG tabletIndicatio ns:Fluid level behind tympanic membrane of both ears Take 1 tablet (10 mg) by mouth if needed each day for allergies. 90 tablet 025 2024 Discontinued(R eorder (will not trigger notification to Pharmacy)) Active Problems Problem Noted Date Diagnosed Date Neck sprain 04/18/2025 Assessment & Plan (04/18/2025 2:16 PM EDT): Advised regarding applying heat to affected area and she will do stretching exercises daily. Apply diclofenac gel twice daily x 1 week then as needed to affected area. Tylenol every 6 hours as needed pain Cyclobenzaprine twice daily x 3 to 4 days then nightly x 7 to 10 days as needed pain Reconsult as needed Dizziness 03/15/2025 Assessment & Plan (03/15/2025 9:32 AM EDT): Suspect middle ear effusion as ost likely cause of dizziness, to use Flonase and Claritin daily until resolution If not feeling better after 2-4 weeks, return to clinic Screening for colon cancer 03/15/2025 Assessment & Plan (03/15/2025 9:32 AM EDT): Due for repeat colonoscopy now due to history of tubular adenoma in 2018 Glaucoma of both eyes 03/15/2025 Fluid level behind tympanic membrane of both ear s 03/15/2025 Kidney stones 02/24/2024 Sensorineural hearing loss ( SNHL) of left ear with unrestricted hearing of right ear 12/25/2023 Assessment & Plan (12/25/2023 11:26 AM EST): Will refer to ENT for hearing loss and pain Multiple food allergies 12/25/2023 Routine history and physical examination of adul t 08/29/2023 Tympanic membrane perforation, left 08/29/2023 Assessment & Plan (08/29/2023 10:55 AM EDT): Dry ear precautions F/u in 3 months for mole removal and will re-evaluate at that time Asthma, well controlled 12/02/2022 Assessment & Plan (12/25/2023 11:34 AM EST): Controlled currently Consider starting Xolair at pul or allergy Assessment & Plan (08/29/2023 10:53 AM EDT): Controlled currently, needs refills of Advair and JEFF inh and neb tx When she returns from [place] consider pulmonology repeat referral to start Xolair Assessment & Plan (02/18/2023 11:42 AM EDT): Controlled currently When she return from [place] consider pulmonology repeat referral to start Xolair Bleeding external hemorrhoids 12/02/2022 Chronic constipation 12/02/2022 Gastroesophageal reflux disease 12/02/2022 Insomnia 12/02/2022 Mixed anxiety and depressive disorder 12/02/2022 Assessment & Plan (12/25/2023 11:33 AM EST): Continue f/u with therapist Continue venlafaxine and Trazodone Seasonal allergies 12/02/2022 Vitamin D deficiency 12/02/2022 Closed fracture of right foot 09/25/2022 Encounters Date Type Department Care Team Description 07/11/2025 10:20 AM EDT Office Visit [address] [address] Robby Flanagan MD Bee sting, undetermined intent, initial encounter (Primary Dx) 07/11/2025 Travel 06/14/[address] [address] Marlys Palma MD Pre-op notes faxed 06/13/2025 9:15 AM EDT Office Visit [address] [facility] Preoperative examination (Primary Dx); Cataract of right eye, unspecified cataract type 06/13/2025 Travel 06/10/[address] [address] Marlys Palma MD Chart Prep 05/26/2025 Orders Only [facility] External Provider, [facility] 05/19/[address] [address] Marlys Palma MD pre op 04/27/2025 5:40 PM EDT Office Visit [address] [address] Robby Flanagan MD Left buttock pain (Primary Dx); Contusion of buttock, initial encounter 04/27/2025 Travel 04/18/2025 2:40 PM EDT Office Visit [facility] [place] [address] Huma Pina MD Neck sprain, initial encounter (Primary Dx); Other chronic pain 04/18/2025 Travel from Last 3 Months Immunizations Immunization Administration Dates Next Due Hep B, adult 03/15/2019,10/02/2017,09/05/2016 Influenza High-dose Quadriva lent Preservative Free 08/29/2023,08/28/2020 Influenza injectable quadriv alent IIV4 with preservative 07/22/2018,10/02/2017,09/05/2016,08/10 Influenza injectable quadriv alent preservative free 07/21/2019 Pfizer Covid-19 Vaccine 12+ 12/26/2020 Pneumococcal Conjugate PCV 13 07/21/2019 Pneumococcal Polysaccharide PPSV23 08/28/2020 Tdap 08/25/2015 Zoster, Recombinant 01/03/2020,07/22/2019 Zoster, live 08/25/2015 Social History Tobacco Use Types Packs/Day Years Used Date Smoking Tobacco: Never Passive Smoke Exposure: Never Smokeless Tobacco: Never Tobacco Cessation:Counseling Given: Not Answered Alcohol Use Standard Drinks/Week Comments Never 0 (1 standard drink = 0.6 oz pur e alcohol) Depression Answer Date Recorded Patient Health Questionnaire-9 Score 0 12/25/2023 Patient Health Questionnaire-9 Score 0 12/25/2023 Last PHQ-9: Questionnaire Data Not on file 0 12/25/2023 Housing Stability Answer Date Recorded What is your housing situation today? I have everett linares 04/07/[address] you li ve. Do you have problems with any of the following? None of the above 04/07/2024 Food Insecurity Answer Date Recorded Within the past 12 months, y ou worried that your food would run out before you got money to buy more: Never True 04/07/2024 Within the past 12 months,th e food you bought just didn't last and you didn't have enough money to get more: Never True 09/2024 Transportation Answer Date Recorded In the past 12 months, has l ack of transportation kept you from medical appts, meetings, work or from getting things needed for daily living? No 04/07/2024 Utilities Answer Date Recorded In the past 12 months, has t he electric, gas, oil or water company threatened to shut off services in your home? No 04/07/2024 Depression Answer Date Recorded Patient Health Questionnaire-2 Score 2 03/14/2025 Internet Access Answer Date Recorded Internet Access Q1 Yes 03/07/2025 Internet Access Q2 Not on file 03/07/2025 Comments Unknown Sex and Gender Information Value Date Recorded Sex Assigned at Female 08/26/2022 10:28 AM EDT Legal Sex Female 10:28 AM EDT Gender Identity Female 08/26/2022 10:28 AM EDT Sexual Orientation Straight 08/26/2022 10 :28 AM EDT Last Filed Vital Signs Vital Sign Reading Time Taken Comments Blood Pressure 158/88 07/11/2025 10:10 AM EDT Pulse 71 07/11/2025 10:10 AM EDT Temperature 36.7 C (98.1 F) 07/11/2025 10:10 AM EDT Respiratory Rate 12 07/11/2025 10:10 AM EDT Oxygen Saturation 98% 07/11/2025 10:10 AM EDT Inhaled Oxygen Concentration - - Weight 66.9 kg (147 lb 6.4 oz) 07/11/2025 10:10 AM EDT Height 157.5 cm (5' 2 ) 07/11/2025 10:10 AM EDT Body Mass Index 26.96 07/11/2025 10:10 AM EDT Plan of Treatment Upcoming Encounters Date Type Department Care Team (Late st Contact Info) Description 09/26/2025 4:00 PM EST Office Visit [facility] [address] [place] [address] Marlys Palma MD [address] [place] [address] Health Maintenance Due Date Last Done Comments CT Colonography 1955 FIT DNA/Cologuard 1955 FIT 1955 FOBT 1955 Sigmoidoscopy 1955 Hepatitis C Screening 01/22/1972 RSV Patients and Patients Aged 60 years or older (1 - Risk 60-74 years 1-dose series) 2014 Colonoscopy 03/17/2025 03/17/2018, 02/24/2018 Colorectal Cancer Screening 03/17/2025 COVID-19 Vaccine ( season) 2025 09/15/2023, 08/10/2021, 01/16/2021, Additional history exists Influenza Vaccine (#1) 2025 , 08/28/2020, 07/21/2019, Additional history exists DTaP/Tdap/Td Vaccines (2 - Td or Tdap) 08/25/2025 08/25/2015 Mammogram 02/02/2026 02/03/2024, 12/11/2021 SDOH Screening 03/07/2026 03/07/2025 Alcohol/Substance Use Screening 03/14/2026 03/14/2025 Depression Screening 03/14/2026 03/14/2025, 12/25/19 24 Tobacco Screening 07/11/2026 07/11/2025 Hepatitis B Vaccines Completed 03/15/2019, 10/02/2017, 09/05/2016 Zoster Vaccines Completed 01/03/2020, 06/28, 08/25/2015 Pneumococcal Vaccine: 50+ Years Completed 08/28/2020, 07/21/2019 HIB Vaccines Aged Out No longer eligi ble based on patient's age to complete this topic HPV Vaccines Aged Out No longer eligi ble based on patient's age to complete this topic Hepatitis A Vaccines Aged Out No long er eligible based on patient's age to complete this topic IPV Vaccines Aged Out No longer eligi ble based on patient's age to complete this topic Meningococcal B Vaccine Aged Out No l onger eligible based on patient's age to complete this topic Meningococcal Vaccine Aged Out No scott diane eligible based on patient's age to complete this topic RSV under 20 months Aged Out No longe r eligible based on patient's age to complete this topic Rotavirus Vaccines Aged Out No longer eligible based on patient's age to complete this topic Procedures Procedure Name Priority Date/Time Associated Diagnosis Comments XR CHEST 1 VIEW Routine 05/26/2025 10:03 PM EDT BI MAMMOGRAM SCREENING TOMOSYNTHESIS BILATERAL Routine 02/03/2024 8:50 AM EDT HM COLONOSCOPY Routine 03/17/2018 8:00 AM EDT from Last 3 Months or Most Recently Relevant to Health Maintenance Results * XR Chest 1 View (05/26/2025 10:03 PM EDT) Anatomical Region Laterality Modality Chest Radiographic Michela ging 05/26/2025 10:0 3 PM EDT Narrative 05/26/2025 10:04 PM EDT [address] [address] XRay Report Signed Patient: Drea Tatum R#: [id number] : 1955 Acct:[id number] Age/Sex: 70 / F ADM Date: 05/26/25 Loc: .ED Attending Dr: Ordering Physician: Catherine Figueroa Date of Service: 05/26/25 Procedure(s): XR chest 1V Accession Number(s): [id number] cc: Catherine Figueroa; Marlys Palma CLINICAL HISTORY: known covid 1 view chest x-ray Comparison: None provided Findings: No consolidation or effusion. Normal size heart. No acute fracture. IMPRESSION: 1. No acute findings. This document has been electronically signed by: Guero Cruz MD on 05/26/2025 22:03:46 Dictated By: Guero Cruz MD Signed By: <Electronically signed by Guero Cruz MD in OV> 05/26/252203 DD/ 02 TD/TT: 05/26/252202 Splunk Architect: Procedure Note Donotuseinterpreter, Image - 05/26/[address] [address] XRay Report Signed Patient: Luann Tatum R#: [id number] : 1955cct:[id number] Age/Sex: 70 / FADM Date: 05/26/25 Loc: HO.ED Attending Dr: Ordering Physician: Catherine Figueroa Date of Service: 05/26/25 Procedure(s): XR chest 1V Accession Number(s): [id number] cc: Catherine Figueroa; Marlys Palma CLINICAL HISTORY: known covid 1 view chest x-ray Comparison: None provided Findings: No consolidation or effusion. Normal size heart. No acute fracture. IMPRESSION: 1. No acute findings. This document has been electronically signed by: Guero Cruz MD on 05/26/2025 22:03:46 Dictated By: Guero Cruz MD Signed By: <Electronically signed by Guero Cruz MD in OV> 05/26/252203 DD/ 02 TD/TT: 05/26/252202 Splunk Architect: [facility] External Provider IMG XR PROCEDURES Final Result * BI Mammogram Screening Tomosynthesis Bilateral (02/03/2024 8:50 AM EDT) Anatomical Region Laterality Modality Breast Bilateral Mammography 02/03/2024 8:50 AM EDT Narrative 02/09/2024 5:50 AM EDT [address] [place] [address] Mammography Report Signed Patient: Drea Tatum#: [id number] : 1955 Acct:[id number] Age/Sex: 69 / F ADM Date: 02/03/24 Loc: HO.MAMMO Attending Dr: Marlys Palma MD Ordering Physician: Marlys Palma Results: 2Benign F indings Date of Service: 02/03/24 Follow Up: 1 Year From Orig ina Mammogram Procedure(s): MM tomosynthesis screening BI Accession Number(s): [id number] cc: Marlys Palma EXAMINATION: MM SCREENING DIGITAL BREAST TOMOSYNTHESIS, BILATERAL CLINICAL INFORMATION: Screening. Asymptomatic. COMPARISON: Mammography: This study is compared with prior exams dating back to 2021. TECHNIQUE: Digital breast tomosynthesis is performed in both the craniocaudal and mediolateral oblique views along with computer-aided detection (CAD). Synthesized 2D images are generated from the tomosynthesis. FINDINGS: There are scattered areas of fibroglandular density (ACR BI-RADS breast composition Category b). There are no significant masses, abnormal calcifications, or other abnormalities. There are few, coarse benign calcifications in the lower inner quadrant of the right breast. MM/MM tomosynthesis screening BI IMPRESSION: No mammographic evidence of malignancy. ASSESSMENT: BI-RADS BI-RADS 2 - Benign Findings RECOMMENDATION: Routine annual mammography screening. 1 year F/U This examination should not preclude the clinical evaluation of a suspicious palpable abnormality. This patient's information was entered into a reminder system with a target due date for their next mammogram. Dictated By: Nadeen Estevez MD Signed By: <Electronically signed by Nadeen Estevez MD in OV> 02/09/24 0547 DD/ 0850 TD/TT: Splunk Architect: Procedure Note Donotuseinterpreter, Image - 02/09/2024 [facility] [address] [place], [place] [address] Mammography Report Signed Patient: Luann Tatum R#: [id number] : 4Acct:[id number] Age/Sex: 69 / FADM Date: 02/03/24 Loc: JORDAN Attending Dr: Marlys Palma MD Ordering Physician: Adilson Palmaults: 2Benign F indings Date of Service: 02/03/24Follow Up: 1 Year From Orig ina Mammogram Procedure(s): MM tomosynthesis screening BI Accession Number(s): [id number] cc: Marlys Palma EXAMINATION: MM SCREENING DIGITAL BREAST TOMOSYNTHESIS, BILATERAL CLINICAL INFORMATION: Screening. Asymptomatic. COMPARISON: Mammography: This study is compared with prior exams dating back to 2021. TECHNIQUE: Digital breast tomosynthesis is performed in both the craniocaudal and mediolateral oblique views along with computer-aided detection (CAD). Synthesized 2D images are generated from the tomosynthesis. FINDINGS: There are scattered areas of fibroglandular density (ACR BI-RADS breast composition Category b). There are no significant masses, abnormal calcifications, or other abnormalities. There are few, coarse benign calcifications in the lower inner quadrant of the right breast. MM/MM tomosynthesis screening BI IMPRESSION: No mammographic evidence of malignancy. ASSESSMENT: BI-RADS BI-RADS 2 - Benign Findings RECOMMENDATION: Routine annual mammography screening. 1 year F/U This examination should not preclude the clinical evaluation of a suspicious palpable abnormality. This patient's information was entered into a reminder system with a target due date for their next mammogram. Dictated By: Nadeen Estevez MD Signed By: <Electronically signed by Nadeen Estevez MD in OV> 02/09/24 0547 DD/ 0850 TD/TT: Splunk Architect: Marlys Palma MD IMG BI PROCEDURES Final Result * Colonoscopy (03/17/2018 8:00 AM EDT) Historical Provider HEALTH MAINTENANCE Final Result from Last 3 Months or Most Recently Relevant to Health Maintenance Insurance [facility] STANDARD [facility] INTERMEDIATE OPTIONS (O D-SNP) Care Teams Land Leasing Examiner Relationship Specialty Start Date End Date Marlys Palma MD [address] [place] [address] PCP - General Family Medicine 06/19/21
--- OUTSIDE RECORDS SUMMARY | 2025-07-19 10:29 | XMS_ITS | Encounter Summary ---
Author Organization [employer] Address [address] [place] [address] Care Team Providers Care District Commercial Superintendent Name Role Phone Jamar Conley NP, Erica Primary Care Provider [phone] Encounter Details Date Type Department Care Team (Late st Contact Info) Description 03/26/2025 Lab Requisition [facility] - Main Lab [address] [place] [address] Dipika Roldan NP [address] [place] [address] Other penitentiary (current) drug therapy Social History Tobacco Use Types Packs/Day Years Used Date Smoking Tobacco: Never Assessed Comments Unknown Sex and Gender Information Value Date Recorded Sex Assigned at Not on file Legal Sex Female 10:40 AM EDT Gender Identity Not on file Sexual Orientation Not on file documented as of this encounter Plan of Treatment Not on file documented as of this encounter Procedures Procedure Name Priority Date/Time Associated Diagnosis Comments LIPID PANEL WITH REFLEX TO DIRECT LDL Routine 03/26/2025 7:00 AM EDT Other penitentiary (current) drug therapy HEMOGLOBIN A1C Routine 03/26/2025 7:00 AM EDT Other exterminator helper termite (current) drug therapy GLUCOSE, RANDOM Routine 03/26/2025 7:00 AM EDT Other penitentiary (current) drug therapy documented in this encounter Results * Lipid panel with reflex to direct LDL (03/26/2025 7:00 AM EDT) [facility] Signature Cholesterol 147 0 - 200 mg/dL LAB CHEMISTRY METHOD 03/26/2025 12:08 PM EDT [facility] Triglycerides 63 0 - 150 mg/dL LAB CHEMISTRY METHOD 03/26/2025 12:08 PM EDT [facility] HDL 59 >=40 mg/dL LAB CHEMISTRY METHOD 03/26/2025 12:08 PM EDT [facility] LDL Calculated 75 0 - 100 mg/dL LAB CHEMISTRY METHOD 03/26/2025 12:08 PM EDT [facility] VLDL Cholesterol Vasiliy 12.6 mg/dL LAB CHEMISTRY METHOD 03/26/2025 12:08 PM EDT [facility] Non HDL Chol. (LDL+VLDL) 88 <145 mg/dL LAB CHEMISTRY METHOD 03/26/2025 12:08 PM EDT [facility] Chol/HDL Ratio 2.5 0.0 - 4.4 LAB CHEMISTRY METHOD 03/26/2025 12:08 PM EDT [facility] Blood Venous blood specimen / Unknown Venipuncture / Unknown 03/26/2025 7:00 AM EDT 03/26/2025 11:10 AM EDT us Dipika Roldan V, GEOTECHNICAL DEPARTMENT MANAGER LAB BLOOD ORDERABLES Final Re sult Performing Organization Address [facility]/ZIP Co de Phone Number [facility] [address] [place] [address], * Glucose, random (03/26/2025 7:00 AM EDT) Glucose 97 70 - 100 mg/dL LAB CHEMISTRY METHOD 03/26/2025 12:07 PM EDT [facility] Blood Venous blood specimen / Unknown Venipuncture / Unknown 03/26/2025 7:00 AM EDT 03/26/2025 11:10 AM EDT us Dipika Staple V, GEOTECHNICAL DEPARTMENT MANAGER LAB BLOOD ORDERABLES Final Re sult Performing Organization Address City/[facility]/ZIP Co de Phone Number [facility] [address] [place] [address], [place] [phone] * Hemoglobin A1c (03/26/2025 7:00 AM EDT) Hemoglobin A1C 5.1 <6.5 % LAB CHEMISTRY METHOD 03/27/2025 8:44 AM EDT [facility] Mean Bld Glu Estim. 100 mg/dL LAB CHEMISTRY METHOD 03/27/2025 8:44 AM EDT [facility] Blood Venous blood specimen / Unknown Venipuncture / Unknown 03/26/2025 7:00 AM EDT 03/26/2025 11:10 AM EDT Dipika Conley NP LAB BLOOD ORDERABLES Final Re sult [facility] [address] [place] [address], documented in this encounter Visit Diagnoses Diagnosis Other penitentiary (current) drug therapy documented in this encounter Care Teams District Commercial Superintendent Relationship Specialty Start Date End Date Dipika Roldan NP [address] [place] [phone] PCP - General Psychiatry 03/26/25 documented as of this encounter
--- OUTSIDE RECORDS SUMMARY | 2025-07-19 10:29 | XMS_ITS | Encounter Summary ---
Author Organization [employer] Address [address] [facility] [address] [place] [address] Care Team Providers Care Sock Examiner Name Role Phone Marlys Palma MD Primary Care Provider [phone] Encounter Details Date Type Department Care Team (Late Contact Info) Description 12/23/2022 Orders Only [facility] [address] [place], [place] [id number] Faviola Pina LPN Social History Tobacco Use Types Packs/Day Years Used Date Smoking Tobacco: Never Smokeless Tobacco: Never Comments Unknown Sex and Gender Information Value Date Recorded Sex Assigned at Female 08/26/2022 10:28 AM EDT Legal Sex Female 10:28 AM EDT Gender Identity Female 08/26/2022 10:28 AM EDT Sexual Orientation Straight 08/26/2022 10 :28 AM EDT COVID-19 Exposure Response Date Recorded In the last 10 days, have yo u been in contact with someone who was confirmed or suspected to have Coronavirus/COVID-19? No / Unsure 12/02/2022 10:00 AM EST documented as of this encounter Plan of Treatment Upcoming Encounters Date Type Department Care Team (Late Contact Info) Description 09/26/2025 4:00 PM EST Office Visit [facility] [address] [place] [address] Marlys Palma MD [address] [place] [address] documented as of this encounter Visit Diagnoses Not on filedocumented in this encounter Care Teams Sock Examiner Relationship Specialty Start Date End Date Marlys Palma MD [address] [place] [address] PCP - General Family Medicine 06/19/21 documented as of this encounter
--- OUTSIDE RECORDS SUMMARY | 2025-07-19 10:29 | XMS_ITS | Encounter Summary ---
Author Organization [employer] Address [address] [facility] [address] 7[address] [place] [address] Care Team Providers Care Software Support Analyst Name Role Phone Marlys Palma MD Primary Care Provider [phone] Encounter Details Date Type Department Care Team (Late st Contact Info) Description 03/03/2024 Orders Only [facility] MEDICINE [address] [place] [address] Provider, MD Deidra Social History Tobacco Use Types Packs/Day Years Used Date Smoking Tobacco: Never Smokeless Tobacco: Never Alcohol Use Standard Drinks/Week Comments Never 0 (1 standard drink = 0.6 oz pur e alcohol) Depression Answer Date Recorded Patient Health Questionnaire-9 Score 0 12/25/2023 Patient Health Questionnaire-9 Score 0 12/25/2023 Last PHQ-9: Questionnaire Data Not on file 0 12/25/2023 Housing Stability Answer Date Recorded What is your housing situation today? I have everettdavid linares 08/21/[address] you li ve. Do you have problems with any of the following? None of the above 08/21/2023 Food Insecurity Answer Date Recorded Within the past 12 months, y ou worried that your food would run out before you got money to buy more: Never True 08/21/2023 Within the past 12 months,th e food you bought just didn't last and you didn't have enough money to get more: Never True Transportation Answer Date Recorded In the past 12 months, has l ack of transportation kept you from medical appts, meetings, work or from getting things needed for daily living? Yes, it has kept me from medical appointments or getting medications. 08/03/2023 Utilities Answer Date Recorded In the past 12 months, has t he electric, gas, oil or water company threatened to shut off services in your home? No 08/21/2023 Depression Answer Date Recorded Patient Health Questionnaire-2 Score 0 12/25/2023 Comments Unknown Sex and Gender Information Value Date Recorded Sex Assigned at Female 08/26/2022 10:28 AM EDT Legal Sex Female 10:28 AM EDT Gender Identity Female 08/26/2022 10:28 AM EDT Sexual Orientation Straight 08/26/2022 10 :28 AM EDT documented as of this encounter Plan of Treatment Upcoming Encounters Date Type Department Care Team (Late st Contact Info) Description 09/26/2025 4:00 PM EST Office Visit [facility] MEDICINE [address] [place] [address] [phone] Marlys Palma MD [address] [place] [phone] documented as of this encounter Procedures Procedure Name Priority Date/Time Associated Diagnosis Comments HM COLONOSCOPY Routine 03/17/2018 8:00 AM EDT documented in this encounter Results * Hm Colonoscopy (03/17/2018 8:00 AM EDT) Historical Provider HEALTH MAINTENANCE Final Result documented in this encounter Visit Diagnoses Not on filedocumented in this encounter Additional Health Concerns Assessment Noted Time PHQ-9 Depression Total Score: 0 12/25/19 24 9:26 AM EST documented as of this encounter Care Teams Software Support Analyst Relationship Specialty Start Date End Date Marlys Palma MD [address] [place] [phone] PCP - General Family Medicine 06/19/21 documented as of this encounter
--- OUTSIDE RECORDS SUMMARY | 2025-07-19 10:29 | XMS_ITS | Encounter Summary ---
Author Organization [employer] Address [address] [facility] 7t [place] [address] Care Team Providers Care Human Resources Representative Name Role Phone Marlys Palam MD Primary Care Provider [phone] Encounter Details Date Type Department Care Team (Late Contact Info) Description 02/26/2023 Orders Only [facility] MEDICINE [address] [place] [address] [phone] Marlys Palma MD [address] [place] [address] [phone] Social History Tobacco Use Types Packs/Day Years Used Date Smoking Tobacco: Never Smokeless Tobacco: Never Alcohol Use Standard Drinks/Week Comments Never 0 (1 standard drink = 0.6 oz pur e alcohol) Depression Answer Date Recorded Patient Health Questionnaire-2 Score 0 02/17/2023 Comments Unknown Sex and Gender Information Value [...] suspected to have Coronavirus/COVID-19? No / Unsure 02/17/2023 9:46 AM EDT documented as of this encounter Plan of Treatment Upcoming Encounters Date Type Department Care Team (Late Contact Info) Description 09/26/2025 4:00 PM EST Office Visit [facility] MEDICINE [address] [place] [address] [phone] Marlys Palma MD [address] [place] [address] documented as of this encounter Visit Diagnoses Not on filedocumented in this encounter Care Teams Human Resources Representative Relationship Specialty Start Date End Date Marlys Palma MD [address] [place] [address] PCP - General Family Medicine 06/19/21 documented as of this encounter
--- OUTSIDE RECORDS SUMMARY | 2025-07-19 10:29 | XMS_ITS | Clinical Summary ---
Author Organization [address] [facility] Address [address] [place] [address] Phone Care Team Providers Care Crossbar Switch Adjuster Name Role Phone Jamar Conley NP, Dipika Primary Care Provider Social History Tobacco Use Types Packs/Day Years Used Date Smoking Tobacco: Never Assessed Comments Unknown Sex and Gender Information Value Date Recorded Sex Assigned at Not on file Legal Sex Female 10:40 AM EDT Gender Identity Not on file Sexual Orientation Not on file Plan of Treatment Health Maintenance Due Date Last Done Comments Breast Cancer Screening 1955 DTaP,Tdap,and Td Vaccines (1 - Tdap) 1973 Pneumococcal Vaccine: 50+ Ye ars (1 of 1 - PCV) 01/22/2004 Zoster Vaccines (1 of 2) 01/22/2004 Depression Screening 10/27/2024 Colorectal Cancer Screening: Colonoscopy 03/26/2025 Falls Risk Assessment 03/26/2025 Hepatitis C Screening 03/26/2025 Osteoporosis Screening (Bone Density Screening) 03/26/2025 Social Influencers of Health Screening 03/26/2025 COVID-19 Vaccine ( - 2023-2 5 season) 2025 Influenza Vaccine (#1) 2025 RSV Immunization Adult Patie nts (1 - 1-dose 75+ series) 2029 Cholesterol Screening (Lipid Panel) 03/26/2030 03/26/2025 HIB Vaccines Aged Out No longer eligi ble based on patient's age to complete this topic HPV Vaccines Aged Out No longer eligi ble based on patient's age to complete this topic Hepatitis A Vaccines Aged Out No long er eligible based on patient's age to complete this topic Hepatitis B Vaccines Aged Out No long er eligible based on patient's age to complete this topic IPV Vaccines Aged Out No longer eligi ble based on patient's age to complete this topic MMR Vaccines Aged Out No longer eligi ble based on patient's age to complete this topic Meningococcal ACWY Vaccine Aged Out N o longer eligible based on patient's age to complete this topic Meningococcal B Vaccine Aged Out No l onger eligible based on patient's age to complete this topic RSV Immunization Patients Un noemi 20 months Aged Out No longer eligible b ased on patient's age to complete this topic Varicella Vaccines Aged Out No longer eligible based on patient's age to complete this topic Procedures Procedure Name Priority Date/Time Associated Diagnosis Comments LIPID PANEL WITH REFLEX TO DIRECT LDL Routine 03/26/2025 7:00 AM EDT Other correction (current) drug therapy from Last 3 Months or Most Recently Relevant to Health Maintenance Results * Lipid panel with reflex to direct LDL (03/26/2025 7:00 AM EDT) Cholesterol 147 0 - 200 mg/dL LAB CHE[facility]STRY [facility] Triglycerides 63 0 - 150 mg/dL LAB CHEMISTRY METHOD 03/26/2025 12:08 PM [facility] HDL 59 >=40 mg/dL LAB CHEMISTRY METHOD 03/26/2025 12:08 PM [facility] LDL Calculated 75 0 - 100 mg/dL LAB CHEMISTRY METHOD 03/26/2025 12:08 PM [facility] VLDL Cholesterol Vasiliy 12.6 mg/dL LAB CHEMISTRY METHOD 03/26/2025 12:08 PM [facility] Non HDL Chol. (LDL+VLDL) 88 <145 mg/dL LAB CHEMISTRY METHOD 03/26/2025 12:08 PM [facility] Chol/HDL Ratio 2.5 0.0 - 4.4 LAB CHEMISTRY METHOD 03/26/2025 12:08 PM [facility] Blood Venous blood specimen / Unknown Venipuncture / Unknown 03/26/2025 7:00 AM EDT 03/26/2025 11:10 AM EDT Dipika Conley NP LAB BLOOD ORDERABLES Final Re sult [facility] [address] [place] [address], from Last 3 Months or Most Recently Relevant to Health Maintenance Care Teams Crossbar Switch Adjuster Relationship Specialty Start Date End Date Dipika Roldan NP [address] [place] [phone] PCP - General Psychiatry 03/26/25
--- OUTSIDE RECORDS SUMMARY | 2025-07-19 10:29 | XMS_ITS | Encounter Summary ---
Author Organization [employer] [facility] Address [address] [place] [address] 7t [place] [address] Care Team Providers Care Trash Man Name Role Phone Marlys Palma MD Primary Care Provider [phone] Encounter Details Date Type Department Care Team (Late Contact Info) Description 06/25/2023 Abstract [facility] MEDICINE [address] [place] [address] [phone] Marlys Palma MD [address] [place] [address] [phone] Social History Tobacco Use Types Packs/Day Years [...] Office Visit [facility]INE [address] [place] [address] [phone] Marlys Palma MD [address] [place] [address] [phone] documented as of this encounter Visit Diagnoses Not on filedocumented in this encounter Care Teams Trash Man Relationship Specialty Start Date End Date Marlys Palma MD [address] [place] [address] PCP - General Family Medicine 06/19/21 documented as of this encounter
--- OUTSIDE RECORDS SUMMARY | 2025-07-19 10:29 | XMS_ITS | Encounter Summary ---
Author Organization [employer] Address [address] [facility] 7t [place] [address] Care Team Providers Care Production Sanitizer Name Role Phone Marlys Palma MD Primary Care Provider [phone] Encounter Details Date Type Department Care Team (Late Contact Info) Description 02/24/2023 Orders Only [facility] MEDICINE [address] [place] [address] [phone] Marlys Palma MD [address] [place] [address] [phone] Social History Tobacco Use Types Packs/Day Years [...] Description 09/26/2025 4:00 PM EST Office Visit [facility] MEDICINE [address] [place] [address] [phone] Marlys Palma MD [address] [place] [address] documented as of this encounter Visit Diagnoses Not on filedocumented in this encounter Care Teams Production Sanitizer Relationship Specialty Start Date End Date Marlys Palma MD [address] [place] [address] PCP - General Family Medicine 06/19/21 documented as of this encounter
--- OUTSIDE RECORDS SUMMARY | 2025-07-19 10:29 | XMS_ITS | Encounter Summary ---
Author Organization [employer] [facility] Address [address] [facility] 7t [place] [address] Care Team Providers Care Metal Buffer Name Role Phone Marlys Palma MD Primary Care Provider [phone] Encounter Details Date Type Department Care Team (Latest Contact Info) Description 04/13/2019 Abstract [facility] CONVERSIONS Dental, Provider, DDS Social History Tobacco Use Types Packs/Day Years [...] Description 09/26/2025 4:00 PM EST Office Visit [facility] MEDICINE [address] [place] [address] Marlys Palma MD [address] [place] [address] documented as of this encounter Visit Diagnoses Not on filedocumented in this encounter Care Teams Metal Buffer Relationship Specialty Start Date End Date Marlys Palma MD [address] [place] [address] PCP - General Family Medicine 06/19/21 documented as of this encounter
== END 2025-07-19 10:59 | disposition home or self-care (01) ==
LOC: HO.HGI 09:05
PROVIDERS: PCP General Practice; Visit Provider Nurse Practitioner
DX: K91.5 Postcholecystectomy syndrome (principal); K21.9 Gastro-esophageal reflux disease without esophagitis
CPT/HCPCS: 99213

== ENCOUNTER → 2025-07-19 09:04 | Outpatient (BNVA) | payer OTHER, SELFPAY | PROVIDERS: PCP General Practice; Visit Provider Nurse Practitioner | DX: Z01.818 Encounter for other preprocedural examination (principal); K91.5 Postcholecystectomy syndrome; K21.9 Gastro-esophageal reflux disease without esophagitis; D12.6 Benign neoplasm of colon, unspecified | CPT/HCPCS: 99212 ==

== ENCOUNTER 2025-08-23 08:15 | Outpatient (REF) | payer OTHER, SELFPAY ==
--- OUTSIDE RECORDS SUMMARY | 2025-08-23 08:45 | XMS_ITS | Encounter Summary ---
Author Organization [employer] Address [address] [facility] 7t [place] [address] Care Team Providers Care Roller Structural Mill Name Role Phone Marlys Palma MD Primary Care Provider [phone] Encounter Details Date Type Department Care Team (Late Contact Info) Description 02/24/2023 Orders Only [facility] MEDICINE [address] [place] [address] [phone] Marlys Palma MD [address] [place] [address] [phone] Social History Tobacco Use Types Packs/Day Years [...] Description 09/26/2025 4:00 PM EST Office Visit [facility] MEDICINE [address] [place] [address] [phone] Marlys Palma MD [address] [place] [address] documented as of this encounter Visit Diagnoses Not on filedocumented in this encounter Care Teams Roller Structural Mill Relationship Specialty Start Date End Date Marlys Palma MD [address] [place] [address] PCP - General Family Medicine 06/19/21 documented as of this encounter
--- OUTSIDE RECORDS SUMMARY | 2025-08-23 08:45 | XMS_ITS | Encounter Summary ---
Author Organization [employer] Address [address] [facility] [address] 7t [place] [address] Care Team Providers Care Manager Sign Name Role Phone Marlys Palma MD Primary Care Provider [phone] Encounter Details Date Type Department Care Team (Late st Contact Info) Description 03/03/2024 Orders Only [facility] MEDICINE [address] [place] [address] Provider, MD Deidra Social History Tobacco Use [...] Description 09/26/2025 4:00 PM EST Office Visit [facility] MEDICINE [address] [place] [address] [phone] Marlys Palma MD [address] [place] [phone] documented as of this encounter Procedures Procedure [...] documented as of this encounter Care Teams Manager Sign Relationship Specialty Start Date End Date Marlys Palma MD [address] [place] [phone] PCP - General Family Medicine 06/19/21 documented as of this encounter
--- OUTSIDE RECORDS SUMMARY | 2025-08-23 08:45 | XMS_ITS | Encounter Summary ---
Author Organization [employer] [facility] Address [address] [place] [address] 7t [place] [address] Care Team Providers Care Stem Roller Operator Name Role Phone Marlys Palma MD Primary Care Provider [phone] Encounter Details Date Type Department Care Team (Late Contact Info) Description 06/25/2023 Abstract [facility] MEDICINE [address] [place] [address] [phone] Marlys Palma MD [address] [place] [address] [phone] Social History Tobacco Use Types Packs/Day Years [...] Description 09/26/2025 4:00 PM EST Office Visit [facility] MEDICINE [address] [place] [address] [phone] Marlys Palma MD [address] [place] [address] [phone] documented as of this encounter Visit Diagnoses Not on filedocumented in this encounter Care Teams Stem Roller Operator Relationship Specialty Start Date End Date Marlys Palma MD [address] [place] [address] PCP - General Family Medicine 06/19/21 documented as of this encounter
--- OUTSIDE RECORDS SUMMARY | 2025-08-23 08:45 | XMS_ITS | Encounter Summary ---
Author Organization [employer] Address [address] [facility] 7t [place] [address] Care Team Providers Care Swatch Paster Name Role Phone Marlys Palma MD Primary Care Provider [phone] Encounter Details Date Type Department Care Team (Late Contact Info) Description 12/23/2022 Orders Only [facility] P[facility]S [address] [place], [place] [phone] Faviola Pina LPN Social History Tobacco Use [...] Description 09/26/2025 4:00 PM EST Office Visit [facility] MEDICINE [address] [place] [address] Marlys Palma MD [address] [place] [address] documented as of this encounter Visit Diagnoses Not on filedocumented in this encounter Care Teams Swatch Paster Relationship Specialty Start Date End Date Marlys Palma MD [address] [place] [address] PCP - General Family Medicine 06/19/21 documented as of this encounter
--- OUTSIDE RECORDS SUMMARY | 2025-08-23 08:45 | XMS_ITS | Encounter Summary ---
Author Organization [employer] Address [address] [facility] 7t [place] [address] Care Team Providers Care Electronic Publishing Specialist Name Role Phone Marlys Palma MD Primary Care Provider [phone] Encounter Details Date Type Department Care Team (Late Contact Info) Description 02/26/2023 Orders Only [facility] MEDICINE [address] [place] [address] [phone] Marlys Palma MD [address] [place] [address] [phone] Social History Tobacco Use Types Packs/Day Years [...] Description 09/26/2025 4:00 PM EST Office Visit [facility] MEDICINE [address] [place] [address] [phone] Marlys Palma MD [address] [place] [address] documented as of this encounter Visit Diagnoses Not on filedocumented in this encounter Care Teams Electronic Publishing Specialist Relationship Specialty Start Date End Date Marlys Palma MD [address] [place] [address] PCP - General Family Medicine 06/19/21 documented as of this encounter
--- OUTSIDE RECORDS SUMMARY | 2025-08-23 08:45 | XMS_ITS | Encounter Summary ---
Author Organization [employer] [facility] Address [address] [facility] 7t [place] [address] Care Team Providers Care Recording Clerk Name Role Phone Marlys Palma MD Primary Care Provider [phone] Encounter Details Date Type Department Care Team (Latest Contact Info) Description 04/13/2019 Abstract [facility] CONVERSIONS Dental, Provider, DDS Social History [...] Office Visit [facility] MEDICINE [address] [place] [address] Marlys Palma MD [address] [place] [address] documented as of this encounter Visit Diagnoses Not on filedocumented in this encounter Care Teams Recording Clerk Relationship Specialty Start Date End Date Marlys Palma MD [address] [place] [address] PCP - General Family Medicine 06/19/21 documented as of this encounter
--- OUTSIDE RECORDS SUMMARY | 2025-08-23 08:45 | XMS_ITS | Clinical Summary ---
Author Organization [employer] Address [address] [place] [address] [address] [place] [address] Care Team Providers Care Law Firm Administrator Name Role Phone Malrys Palma MD Primary Care Provider [phone] Allergies No known active allergies Medications Blood [...] every 6 (six) hours. 180 mL Active traZODone (Desyrel) 100 MG tablet Take [...] if needed for itching. 118 mL Active omeprazole (PriLOSEC) [address] capsule Take 1 capsule (20 mg) by mouth before breakfast. Do not crush or chew. 30 capsule 2024 Active omeprazole (PriLOSEC) [address] capsule Take 1 capsule (20 mg) by mouth before breakfast. Do not crush or chew. 90 capsule 3 2024 Discontinued omeprazole (PriLOSEC) [address] capsule TAKE 1 CAPSULE BY MOUTH EVERY DAY BEFORE A MEAL 90 capsule 2 2024 Discontinued(R eorder (will not trigger notification to Pharmacy)) sulfamethoxazol e-trimethoprim (Bactrim DS) 800-160 MG tablet Take 1 tablet by mouth 2 times daily for 3 days. 6 tablet 025 2024 Active Problems Problem Noted Date Diagnosed Date Acute urinary tract infection 08/15/2025 Abdominal pain in female 08/15/2025 Neck sprain 04/18/2025 Assessment & Plan (04/18/2025 [...] EST): Controlled currently Consider starting Xolair at pulm or allergy Assessment & Plan (08/29/2023 10:53 AM EDT): Controlled currently, needs refills of Advair and JEFF inh and neb tx When she returns from [place] consider pulmonology repeat referral to start Xolair Assessment & Plan (02/18/2023 11:42 AM EDT): Controlled currently When she return from [place] consider pulmonology repeat referral to start Xolair Bleeding external hemorrhoids 12/02/2022 Chronic constipation 12/02/2022 Gastroesophageal reflux disease 12/02/2022 Insomnia 12/02/2022 Mixed anxiety and depressive disorder 12/02/2022 Assessment & Plan (12/25/2023 11:33 AM EST): Continue f/u with therapist Continue venlafaxine and Trazodone Seasonal allergies 12/02/2022 Vitamin D deficiency 12/02/2022 Closed fracture of right foot 09/25/2022 Encounters Date Type Department Care Team Description 08/15/2025 9:40 AM EDT Office Visit [facility] WALK-IN [address] [address] Zoe Arroyo FNP Acute urinary tract infection (Primary Dx); Abdominal pain in female 08/15/2025 Travel 08/02/2025 Refill [facility] MEDICINE [address] [place] [id number] Marlys Palma MD 07/11/2025 10:20 AM EDT Office Visit [facility] WALK-IN [address] [address] NameRobby MD Bee sting, undetermined intent, initial encounter (Primary Dx) 07/11/2025 Travel 06/14/2025 Telephone [facility] MEDICINE [address] [place] [phone] Marlys Palma MD Pre-op notes faxed 06/13/2025 9:15 AM EDT Office Visit [facility] MEDICINE [address] [facility] [place] [address] Alexandrea Schwab FNP Preoperative examination (Primary Dx); Cataract of right eye, unspecified cataract type 06/13/2025 Travel 06/10/2025 Telephone [facility] [address] [facility] [place] [address] Marlys Palma MD Chart Prep 05/26/2025 Orders Only [facility] External Provider, [facility] from Last 3 Months Immunizations Immunization Administration [...] your housing situation today? I have everett milagros 04/07/[address] you li [...] Sign Reading Time Taken Comments Blood Pressure 133/84 08/15/2025 9:16 AM EDT Pulse 69 08/15/2025 9:16 AM EDT Temperature 36.6 C (97.9 F) 08/15/2025 9:16 AM EDT Respiratory Rate 16 08/15/2025 9:16 AM EDT Oxygen Saturation 97% 08/15/2025 9:16 AM EDT Inhaled Oxygen Concentration - - Weight 67.1 kg (148 lb) 08/15/2025 9:16 AM EDT Height 157.5 cm (5' 2 ) 07/11/2025 10:10 AM EDT Body Mass Index 27.07 07/11/2025 10:10 AM EDT Plan of Treatment Upcoming Encounters Date Type Department Care Team (Late st Contact Info) Description 09/26/2025 4:00 PM EST Office Visit [facility] MEDICINE [address] [place] [address] Marlys Palma MD [address] [place] [address] Health Maintenance Due Date Last Done Comments [...] Screening 03/14/2026 03/14/2025, 12/25/19 24 Tobacco Screening 08/15/2026 08/15/2025 Hepatitis B Vaccines Completed 03/15/2019, 10/02/2017, 09/05/2016 [...] Procedure Name Priority Date/Time Associated Diagnosis Comments POCT URINALYSIS DIPSTICK Routine 08/15/2025 9:40 AM EDT Abdominal pain in female XR CHEST 1 VIEW Routine 05/26/2025 10:03 PM EDT BI MAMMOGRAM SCREENING TOMOSYNTHESIS BILATERAL Routine 02/03/2024 8:50 AM EDT HM COLONOSCOPY Routine 03/17/2018 8:00 AM EDT from Last 3 Months or Most Recently Relevant to Health Maintenance Results * (ABNORMAL) POCT urinalysis dipstick manually resulted (CPT 95154) (08/15/2025 9:40 AM EDT) Color, UA Yellow Comment:Dark Clarity, UA Clear Glucose, UA Negative Bilirubin, UA Few 15 Ketones, UA Negative Spec Grav, UA 1.025 Blood, UA Negative Negative, None Detected pH, UA 5.5 Protein, UA 1+ 70+ Comment:30mg Urobilinogen, UA 0.2 Leukocytes, UA Negative Negative, Rare, Trace Nitrite, UA Positive(A) Negative, None Detected Appearance, UA OK Urine (Urine, Random) 08/15/2025 9:40 AM EDT Zoe Cruz SENIOR UNDERWRITER POINT OF CARE TEST ENTER/EDIT ORDERABLES Final Result * XR Chest 1 View (05/26/2025 10:03 PM EDT) Anatomical Region Laterality Modality Chest Radiographic Michela ging 05/26/2025 10:0 3 PM EDT Narrative 05/26/2025 10:04 PM EDT [address] [address] XRay Report Signed Patient: Drea Tatum Samira#: [id number] : 1955 Acct:[id number] Age/Sex: 70 / F ADM Date: 05/26/25 Loc: .ED Attending Dr: Ordering Physician: Catherine Figueroa Date of Service: 05/26/25 Procedure(s): XR chest 1V Accession Number(s): [id number] cc: Catherine Figueroa; Marlys Palma CLINICAL HISTORY: [...] in OV> 05/26/252203 DD/ 02 TD/TT: 05/26/252202 Head Scorer: Procedure Note Donotuseinterpreter, Image - 05/26/[address] [address] XRay Report Signed Patient: Luann Tatum R#: [id number] : 1955cct:[id number] Age/Sex: 70 / FADM Date: 05/26/25 Loc: .ED Attending Dr: Ordering Physician: Catherine Figueroa Date of Service: 05/26/25 Procedure(s): XR chest 1V Accession Number(s): [id number] cc: Catherine Figueroa; Marlys Palma CLINICAL HISTORY: [...] in OV> 05/26/252203 DD/ 02 TD/TT: 05/26/252202 Head Scorer: [facility] External Provider IMG XR PROCEDURES Final Result * BI Mammogram Screening Tomosynthesis Bilateral (02/03/2024 8:50 AM EDT) Anatomical Region Laterality Modality Breast Bilateral Mammography 02/03/2024 8:50 AM EDT Narrative 02/09/2024 5:50 AM EDT [address] [place] [address] Mammography Report Signed Patient: Drea Tatum#: [id number] : 1955 Acct:[id number] Age/Sex: 69 / F ADM Date: 02/03/24 [facility]: Marlys Palma MD Ordering Physician: Marlys Palma Results: 2Benign F indings Date of Service: 02/03/24 Follow Up: 1 Year From Orig inal Mammogram Procedure(s): MM tomosynthesis screening BI Accession Number(s): [id number] cc: Marlys Palma EXAMINATION: MM SCREENING DIGITAL [...] in OV> 02/09/24 0547 DD/ 0850 TD/TT: Head Scorer: Procedure Note Donotuseinterpreter, Image - 02/09/[address] [place] [place] [address] Mammography Report Signed Patient: Merced TatumSana R#: [id number] : 4Acct:[id number] Age/Sex: 69 / FADM Date: 02/03/24 Loc: HO.MAMMO Attending Dr: Marlys Palma MD Ordering Physician: Adilson Palmaults: 2Benign F indings Date of Service: 02/03/24Follow Up: 1 Year From Orig ina Mammogram Procedure(s): MM tomosynthesis screening BI Accession Number(s): [id number] cc: Marlys Palma EXAMINATION: MM SCREENING DIGITAL [...] in OV> 02/09/24 0547 DD/ 0850 TD/TT: Head Scorer: us Marlys Palma MD IMG BI PROCEDURES Final Result * Hm Colonoscopy (03/17/2018 8:00 AM EDT) Historical Provider HEALTH MAINTENANCE Final Result from Last 3 Months or Most Recently Relevant to Health Maintenance Insurance [facility] OPTIONS (HMO D-SNP) Care Teams Law Firm Administrator Relationship Specialty Start Date End Date Marlys Palma MD [address] [place], [place] PCP - General Family Medicine 06/19/21
[2025-08-23 11:16] LABS: MANUAL DIFF FLAG NO
[2025-08-23 11:37] LABS: Hematocrit 41.4 % (37.0-47.0); Hemoglobin 13.1 g/dl (12.0-16.0); Imm Gran Abs Auto 0.02 X10*3/uL (0.00-0.03); Imm Gran Pct Auto 0.3 % (0.0-0.4); Lymphocytes Absolute Auto 2.0 X10*3/uL (1.2-4.9); Mean Corpuscular HGB Conc 31.6 g/dl (31.0-35.0); Mean Corpuscular Hemoglobin 30.0 pg (27.0-33.0); Mean Corpuscular Volume 95.0 fL (80.0-98.0); NRBC Abs Auto 0.000 X10*3/uL (0.0-0.012); NRBC Pct Auto 0.0 /100WBC (0.0-0.2); Platelet Count 378 X10*3/uL (160-400); Red Blood Count 4.36 X10*6/uL (4.20-5.50); White Blood Count 7.8 X10*3/uL (4.8-10.8)
[2025-08-23 12:07] LABS: Alanine Aminotransferase 14 U/L (0-31); Albumin Level 4.4 g/dL (3.5-5.0); Alkaline Phosphatase 61 U/L (39-117); Anion Gap 10 (12-20); Aspartate Amino Transferase 18 U/L (5-31); Blood Urea Nitrogen 19 mg/dL (9-16); Calcium 9.4 mg/dL (8.4-10.2); Carbon Dioxide 27 mmol/L (22-29); Chloride 107 mmol/L (96-108); Estimated Glomerular Filt Rate > 60; Potassium 3.8 mmol/L (3.3-5.1); Sodium 140 mmol/L (135-145); Total Protein 7.2 g/dL (6.5-8.0)
[2025-08-23 12:13] LABS: ~HepC Num1 0.06 S/CO (0.00-0.79); ~Hepatitis C Antibody Nonreactive (Nonreactive)
== END 2025-08-23 08:16 | disposition home or self-care (01) ==
LOC: HO.HHCL 08:15
PROVIDERS: PCP General Practice; Visit Provider Nurse Practitioner
DX: Z01.818 Encounter for other preprocedural examination (principal); Z11.9 Encounter for screening for infectious and parasitic diseases, unspecified
CPT/HCPCS: 36415; 80053; 85025; 86803

== ENCOUNTER 2025-08-24 12:08 | Emergency (ER) | payer OTHER, SELFPAY ==
--- NOTE | ~2025-08-24 | CT_ITS ---
EXAMINATION: CT ABDOMEN AND PELVIS WITH CONTRAST CLINICAL INFORMATION: Lower abdominal pain COMPARISON: 07/26/2015 TECHNIQUE: Multidetector volumetric images were obtained from the superior aspect of the liver through the pubic symphysis following administration 85 mL of Omnipaque 350 intravenous contrast. Sagittal and coronal reformatted images were obtained on the technologist's workstation. Oral contrast: No This CT examination was performed using dose optimization techniques as appropriate, variously including the following: *Automated exposure control *Adjustment of mA and/or kV according to patient size (this includes techniques or standardized protocols for targeted exams where dose is matched to indication/reason for exam; i.e. extremities or head) *Use of iterative reconstruction technique FINDINGS: LUNG BASES: Clear LIVER, GALLBLADDER, AND BILIARY TREE: There is heterogeneous lesion in segment 6 of the liver that demonstrates peripheral globular enhancement and measures 12 x 19 mm consistent with a benign cavernous hemangioma. Gallbladder is not visualized and likely surgically absent. There is extrahepatic bile duct dilation, slightly increased from the prior. PANCREAS: Unremarkable. SPLEEN: Unremarkable. ADRENAL GLANDS: Unremarkable. KIDNEYS AND URETERS: Bilateral parapelvic simple cysts are present. There are also simple renal cysts in the cortex of the lower right and left kidney. BLADDER: Unremarkable. GASTROINTESTINAL TRACT: Fluid is seen throughout the gastrointestinal tract. Normal appendix is identified. ABDOMINAL WALL: No significant hernia is appreciated. LYMPH NODES: Normal. VASCULAR: Mild multifocal vascular calcification is are evident. PELVIC VISCERA: The uterus and ovaries are likely surgically absent. OSSEOUS STRUCTURES: Unremarkable. CT/CT abdomen pelvis w IV con IMPRESSION: There is a nonspecific bowel gas pattern with fluid and gas seen throughout the gastrointestinal tract. Fleischner guidelines were followed. Electronically signed by: Abraham Morillo MD 08/24/2025 04:55 PM EDT
[2025-08-24 12:40] VITALS: BP 163/87; PULSE 77; RESP 18; TEMP 36.5; O2SAT 99; BMI 26.5
--- NOTE | 2025-08-24 12:42 | ED.GENADULT ---
HPI - General Adult General Chief complaint: Urogenital-Female Stated complaint: blood in urine Time Seen by Provider: 08/24/25 14:13 Source: patient, family (Caregiver/friend) and spike machine heater Mode of arrival: ambulatory Limitations: no limitations History of Present Illness ED Provider: DR. Ji HPI narrative: 70-year-old female came in with her caregiver for evaluation of persistent of suprapubic abdominal pain with blood in the urine for the past 2 weeks, patient was seen and evaluated by her PCP was started on oral antibiotic for UTI a week ago without improvement of patient's symptoms patient is still complaining of suprapubic pain that is intermittent despite using the antibiotic. No fever, chills. Related Data Home Medications ?Medication ?Instructions ?Recorded ?Confirmed acetaminophen 500 mg tablet 500 - 1,000 mg PO Q8H PRN 06/28/22 07/19/25 albuterol sulfate 90 mcg/actuation 2 puff inhalation Q4H PRN 06/28/22 07/19/25 aerosol inhaler (Ventolin HFA) fluticasone 250 mcg-salmeterol 50 1 ea inhalation BID 06/28/22 07/19/25 mcg/dose blistr powdr for inhalation fluticasone propionate 50 1 spray intranasal DAILY PRN 06/28/22 07/19/25 mcg/actuation nasal allergies spray,suspension ipratropium 0.5 mg-albuterol 3 mg ml inhalation Q6H PRN 06/28/22 07/19/25 (2.5 mg base)/3 mL nebulization soln loratadine 10 mg tablet 10 mg PO DAILY PRN allergies 06/28/22 07/19/25 omeprazole 20 mg capsule,delayed 20 mg PO DAILY 06/28/22 07/19/25 release trazodone 100 mg tablet 50 - 100 mg PO BEDTIME PRN 06/28/22 07/19/25 venlafaxine 150 mg 150 mg PO QAM 06/28/22 07/19/25 capsule,extended release 24 hr brinzolamide 1 %-brimonidine 0.2 % 1 drp ophthalmic (eye) BID 07/19/25 07/19/25 eye drops,suspension (Simbrinza) calamine 8 %-zinc oxide 8 % lotion topical itch 07/19/25 07/19/25 cholecalciferol (vitamin D3) 50 50 mcg PO DAILY 07/19/25 07/19/25 mcg (2,000 unit) capsule latanoprost 0.005 % eye drops 1 drp ophthalmic (eye) BEDTIME 07/19/25 07/19/25 melatonin 3 mg tablet 3 mg PO BEDTIME 07/19/25 07/19/25 sennosides 8.6 mg capsule (senna) 8.6 mg PO BEDTIME 07/19/25 07/19/25 Previous Rx's ?Medication ?Instructions ?Recorded fexofenadine 180 mg tablet 180 mg PO DAILY #30 tabs 07/26/22 (Diana Allergy) hydrocortisone 2.5 % topical 1 appl topical BID-TID PRN skin 07/26/22 ointment irritation #20 grams oxycodone 5 mg tablet 5 mg PO Q8H PRN pain #10 tabs 08/10/22 bisacodyl 5 mg tablet,delayed 10 mg (2 x 5 mg) PO BEDTIME 2 days 07/19/25 release (Dulcolax (bisacodyl)) #4 tabs peg 3350-electrolytes 236 240 ml PO Q10M 1 day #4,000 mL 07/19/25 gram-22.74 gram-6.74 gram-5.86 gram solution (Golytely) sucralfate 1 gram tablet (Carafate) 2 g (2 x 1 gram) PO DAILY #60 tabs 07/19/25 cefuroxime axetil 500 mg tablet 500 mg PO BID #20 tabs 08/24/25 Allergies Allergy/AdvReac Type Severity Reaction Status Date / Time avocado Allergy Unknown Rash Verified 08/24/25 12:41 banana Allergy Unknown Rash Verified 08/24/25 12:41 cholestyramine Allergy Unknown Rash Verified 08/24/25 12:41 diphenhydramine (From Allergy Unknown Rash Verified 08/24/25 12:41 Benadryl) grape Allergy Unknown Rash Verified 08/24/25 12:41 seafood Allergy Unknown Rash Verified 08/24/25 12:41 Review of Systems Review of Systems: All other systems are reviewed and are negative Constitutional: Reports as per HPI and Reports no additional constitutional complaints Eyes: Reports as per HPI and Reports no additional eye complaints Reports system reviewed and no additional complaints, except as documented Cardiovascular: Reports as per HPI and Reports no additional cardiovascular complaints Respiratory: Reports as per HPI and Reports no additional respiratory complaints Gastrointestinal: Reports as per HPI and Reports no additional gastrointestinal complaints Genitourinary: Reports no additional female genitourinary complaints Musculoskeletal: Reports no additional musculoskeletal complaints Skin/Breast: Reports system reviewed and no additional complaints, except as docu Psychiatric: Reports no additional psychiatric complaints Endocrine: Reports no additional endocrine complaints Hematologic/Lymphatic: Reports no additional hematologic/lymphatic complaints Allergic/Immunologic: Reports no additional allergic/immunologic complaints Reports system reviewed and no additional complaints, except as documented and Reports Abnormal speech present [facility] Past Medical History Surgical History Hx of cholecystectomy H/O total hysterectomy H/O section History of esophagogastroduodenoscopy (EGD) H/O colonoscopy History of hysterectomy Social History Social History Alcohol intake: never Patient Tobacco Use Status: Never used Tobacco Smoked in Last 30 Days: No Use of substances other than those prescribed or required for medical reasons: No Advance Directives: No Advance Directives Information Provided: Yes Do you have a plan to hurt others: No Plan Current occupational status: disabled Current occupation: right hand dominant Physical Exam ED Vital Signs: Vital Signs - 24 hr 08/24/25 12:40 08/24/25 14:41 08/24/25 16:36 Temperature 97.7 F 97.7 F Pulse Rate 77 79 88 Respiratory Rate 18 18 22 H Blood Pressure 163/87 H 137/79 176/76 H Pulse Oximetry 99 99 99 Oxygen Delivery Method Room Air Room Air BMI result Body Mass Index 26.5 Vital signs have been reviewed and appear to be correct. Blood pressure elevated. Heart rate normal. Respiratory rate normal. Temperature normal. Oxygen saturation normal. Appearance: Alert. Oriented X3. No acute distress. Head: Normal external exam. Normocephalic. Atraumatic. No Garcia signs noted. No raccoon eyes noted Eyes: PERRLA. EOMI. Conjunctiva and sclera normal. Eyelids normal. ENT: TM's Normal. Pharynx normal. Uvula midline. Moist mucous membranes. No trismus noted. No drooling noted. No muffled voice noted. Neck: Normal inspection. Neck supple. FROM. No adenopathy. Thyroid Normal. No meningeal signs. No neck mass noted. CVS: Normal heart rate and rhythm. Heart sound normal. No murmurs noted. Pulses normal throughout. Respiratory: No respiratory distress. Painless inspiration. Breath sounds normal. No wheezes/rales/rhonchi noted. Chest nontender. No accessory muscle usage noted or decreased air movement noted. Abdomen: Soft, suprapubic tenderness, no guarding, no rebound tenderness. Bowel sounds normal in all 4 quadrants. No distention noted. No organomegaly noted. No visible injury noted. Back: No CVA tenderness. Full range of motion noted. Skin: Skin warm and dry. Normal skin color. Normal skin turgor. No rashes/lesions/lacerations noted. Extremities: No lower extremity edema. Extremities exhibit normal range of motion. Extremities nontender. Neuro: Oriented X 3. Cranial nerve exam: II-XII are grossly intact No motor deficit. No sensory deficit. Reflexes normal. Course Course Course Narrative: 70 yo F for 2 weeks abdominal pain hematuria. On antibiotic from primary doctor, Endorses N+ V. Unable to tolerate PO antibiotic due to nausea. Rapid medical screening exam was performed. Patient stable at time of evaluation. Miryam Villarreal, DO 08/24/25 1243 Reevaluation(s) Reevaluation #1: Persistence of UTI symptoms despite using antibiotic, findings today are consistent with cystitis with no intra-abdominal pathology finding on the CT, in particular no obstructive uropathy. Will discharge the patient home on cefuroxime 500 mg b.i.d. for 1 week and drink plenty of fluids. Patient developed allergic reaction form IV contrast, patient received Solu-Medrol, hydroxyzine, IV fluids, Solu-Medrol, with improvement of her symptoms, no itching, no rash, no difficulty breathing. Time: 17:44 Medications Administered Discontinued Medications Generic Name Dose Route Start Last Admin Trade Name Freq PRN Reason Stop Dose Admin Cefuroxime Axetil 500 mg 08/24/25 15:41 08/24/25 15:57 Cefuroxime Axetil 500 Mg Tablet PO 08/24/25 15:42 500 mg ONCE ONE Administration Famotidine 20 mg 08/24/25 16:43 08/24/25 16:50 Famotidine/Pf 20 Mg/2 Ml Vial IVPUSH 08/24/25 16:44 20 mg ONCE ONE Administration Hydroxyzine HCl 25 mg 08/24/25 16:43 08/24/25 16:50 Hydroxyzine Hcl 25 Mg Tablet PO 08/24/25 16:44 25 mg ONCE ONE Administration Iohexol 100 ml 08/24/25 16:20 08/24/25 16:21 Iohexol 350 Mg/Ml 100 Ml Infus..Btl IV 08/24/25 16:21 85 ml ONCE ONE Administration Methylprednisolone Sodium Succinate 125 mg 08/24/25 16:43 08/24/25 16:50 Methylprednisolone Sod Succ 125 Mg/2 Ml Vial IVPUSH 08/24/25 16:44 125 mg ONCE ONE Administration Morphine Sulfate 1 mg 08/24/25 15:47 08/24/25 15:57 Morphine Sulfate 4 Mg/Ml Cartridge IVPUSH 08/24/25 15:48 1 mg ONCE ONE Administration Protocol Ondansetron HCl 4 mg 08/24/25 15:47 08/24/25 15:58 Ondansetron Hcl 4 Mg/2 Ml Vial IVPUSH 08/24/25 15:48 4 mg ONCE ONE Administration Medical Decision Making Differential Diagnosis Differential Diagnoses: The differential diagnosis associated with the presentation includes (UTI, cystitis, pyelonephritis, obstructive kidney stone, colitis, diverticulitis, pancreatitis, electrolyte derangement, severe anemia.) Admission/Observation Consideration of admission/observation: Escalation of care including admission/observation considered Lab Data MDM Lab Attestation statement: I reviewed the patient's lab results. 08/24/25 13:20 08/24/25 13:20 Labs: Lab Results 08/24/25 08/24/25 Range/Units 13:20 14:40 WBC 10.0 (4.8-10.8) X10*3/uL RBC 4.35 (4.20-5.50) X10*6/uL Hgb 13.1 (12.0-16.0) g/dl Hct 41.2 (37.0-47.0) % MCV 94.7 (80.0-98.0) fL MCH 30.1 (27.0-33.0) pg MCHC 31.8 (31.0-35.0) g/dl RDW 12.9 (11.0-16.0) % Plt Count 407 H (160-400) X10*3/uL MPV 8.9 L (9.4-12.3) fL Immature Gran % (Auto) 0.4 (0.0-0.4) % Neut % (Auto) 70.8 (45-73) % Lymph % (Auto) 21.4 (20-40) % Ada % (Auto) 6.6 (2-11) % Eos % (Auto) 0.3 (0-4) % Baso % (Auto) 0.5 (0-2) % Lymph # (Auto) 2.1 (1.2-4.9) X10*3/uL Ada # (Auto) 0.7 (0.1-1.2) X10*3/uL Eos # (Auto) 0.0 (0.0-0.4) X10*3/uL Baso # (Auto) 0.1 (0.0-0.2) X10*3/uL Abs Immat Gran (auto) 0.04 H (0.00-0.03) X10*3/uL Absolute Neuts (auto) 7.1 (2.0-8.3) x10*3/uL Absolute Nucleated RBC 0.000 (0.0-0.012) X10*3/uL Nucleated RBC % (auto) 0.0 (0.0-0.2) /100WBC Sodium 141 (135-145) mmol/L Potassium 4.0 (3.3-5.1) mmol/L Chloride 106 (96-108) mmol/L Carbon Dioxide 27 (22-29) mmol/L Anion Gap 12 (12-20) BUN 22 H (9-16) mg/dL Creatinine 0.61 (0.5-1.4) mg/dL Estim Creat Clear Calc 75.2 Estimated GFR > 60 Random Glucose 96 (60-115) mg/dL Lactic Acid 1.2 (0.5-2.0) mmol/L Calcium 9.3 (8.4-10.2) mg/dL Magnesium 2.1 (1.6-2.6) mg/dL Total Bilirubin 0.3 (0.0-1.0) mg/dL AST 15 (5-31) U/L ALT 12 (0-31) U/L Alkaline Phosphatase 64 (39-117) U/L Total Protein 7.3 (6.5-8.0) g/dL Albumin 4.6 (3.5-5.0) g/dL Lipase 27 (8-78) U/L Urine Color Yellow Urine Appearance Cloudy Urine pH 5.5 (5.0-9.0) Ur Specific Marilla 1.025 (1.005-1.025) Urine Protein Negative (Neg-Trace) mg/dL Urine Glucose (UA) Negative (Negative) mg/dL Urine Ketones Trace (Negative) mg/dL Urine Blood Trace H (Negative) Urine Nitrite Positive H (Negative) Ur Leukocyte Esterase Moderate (2+) H (Negative) Urine RBC 0-2 (0-2) /HPF Urine WBC 11-20 H (0-5) /HPF Ur Squamous Epith Cells 11-20 (0-2) /HPF Urine Bacteria 4+ (None Seen) Hyaline Casts >20 (0-2) /LPF Independent Interpretation I performed an independent interpretation of an: CT Scan (Abdomen pelvis:There is a nonspecific bowel gas pattern with fluid and gas seen throughout the gastrointestinal tract. ) Radiology Impression Discussion of test interpretation with radiology: I have reviewed the radiologist's reading. Discharge Plan Discharge Clinical Impression: Acute UTI Patient Disposition: Home, Self-Care Instructions: Urinary Tract Infection in Women (ED) Additional Instructions: Drink plenty of fluids. Prescriptions: New cefuroxime axetil 500 mg tablet 500 mg PO BID Qty: 20 0RF No Action oxycodone 5 mg tablet 5 mg PO Q8H PRN (Reason: pain) Qty: 10 0RF Rx Instructions: Partial Fill upon patient request. omeprazole 20 mg capsule,delayed release(DR/EC) 20 mg PO DAILY trazodone 100 mg tablet 50 - 100 mg PO BEDTIME PRN fluticasone propion-salmeterol 250-50 mcg/dose blister with device 1 ea inhalation BID loratadine 10 mg tablet 10 mg PO DAILY PRN (Reason: allergies) fluticasone propionate 50 mcg/actuation spray,suspension 1 spray intranasal DAILY PRN (Reason: allergies) albuterol sulfate [Ventolin HFA] 90 mcg/actuation HFA aerosol inhaler 2 puff inhalation Q4H PRN acetaminophen 500 mg tablet 500 - 1,000 mg PO Q8H PRN venlafaxine 150 mg capsule,extended release 24hr 150 mg PO QAM ipratropium-albuterol 0.5 mg-3 mg(2.5 mg base)/3 mL solution for nebulization inhalation Q6H PRN fexofenadine [Diana Allergy] 180 mg tablet 180 mg PO DAILY Qty: 30 3RF hydrocortisone 2.5 % ointment 1 appl topical BID-TID PRN (Reason: skin irritation) Qty: 20 0RF latanoprost 0.005 % drops 1 drp ophthalmic (eye) BEDTIME melatonin 3 mg tablet 3 mg PO BEDTIME calamine-zinc oxide 8-8 % lotion topical cholecalciferol (vitamin D3) 50 mcg (2,000 unit) capsule 50 mcg PO DAILY Simbrinza 1-0.2 % drops,suspension 1 drp ophthalmic (eye) BID bisacodyl [Dulcolax (bisacodyl)] 5 mg tablet,delayed release (DR/EC) 10 mg PO BEDTIME 2 Days Qty: 4 0RF peg 3350-electrolytes [Golytely] 236-22.74-6.74 -5.86 gram recon soln 240 ml PO Q10M 1 Days Qty: 4000 0RF Rx Instructions: until fecal effluent is clear; do not exceed a total volume of 2,000 mL sucralfate [Carafate] 1 gram tablet 2 g PO DAILY Qty: 60 3RF senna 8.6 mg capsule 8.6 mg PO BEDTIME Referrals: Marlys Palma MD [Primary Care Provider, Internal Medicine] Print Language: French
--- NOTE | 2025-08-24 13:21 | MHC.EDTECH ---
Patient was unable to give a urine at this time, will re-attempt.
[2025-08-24 13:31] LABS: MANUAL DIFF FLAG NO
[2025-08-24 13:38] LABS: Hematocrit 41.2 % (37.0-47.0); Hemoglobin 13.1 g/dl (12.0-16.0); Imm Gran Abs Auto 0.04 X10*3/uL (0.00-0.03); Imm Gran Pct Auto 0.4 % (0.0-0.4); Lymphocytes Absolute Auto 2.1 X10*3/uL (1.2-4.9); Mean Corpuscular HGB Conc 31.8 g/dl (31.0-35.0); Mean Corpuscular Hemoglobin 30.1 pg (27.0-33.0); Mean Corpuscular Volume 94.7 fL (80.0-98.0); NRBC Abs Auto 0.000 X10*3/uL (0.0-0.012); NRBC Pct Auto 0.0 /100WBC (0.0-0.2); Platelet Count 407 X10*3/uL (160-400); Red Blood Count 4.35 X10*6/uL (4.20-5.50); White Blood Count 10.0 X10*3/uL (4.8-10.8)
[2025-08-24 14:00] LABS: Alanine Aminotransferase 12 U/L (0-31); Albumin Level 4.6 g/dL (3.5-5.0); Alkaline Phosphatase 64 U/L (39-117); Anion Gap 12 (12-20); Aspartate Amino Transferase 15 U/L (5-31); Blood Urea Nitrogen 22 mg/dL (9-16); Calcium 9.3 mg/dL (8.4-10.2); Carbon Dioxide 27 mmol/L (22-29); Chloride 106 mmol/L (96-108); Creatinine Clr Calc Pharmacy 75.2; Estimated Glomerular Filt Rate > 60; Lipase 27 U/L (8-78); Magnesium 2.1 mg/dL (1.6-2.6); Potassium 4.0 mmol/L (3.3-5.1); Sodium 141 mmol/L (135-145); Total Protein 7.3 g/dL (6.5-8.0)
[2025-08-24 14:41] VITALS: BP 137/79; PULSE 79; RESP 18; O2SAT 99
[2025-08-24 14:51] LABS: Appearance Urine Cloudy; Glucose Urine UA Negative (Negative); PH 5.5 (5.0-9.0); Specific Gravity - Urine 1.025 (1.005-1.025); UMIC TRIGGER UA YES
--- NOTE | 2025-08-24 16:03 | PC.NURSE ---
patient a&ox3 vss, iv inserted, for ct scan, pt medicated for 9/10 abd pain. family at bedside, call alaniz within reach, plan of care ongoing
[2025-08-24] MEDS: iohexoL 350 MG/ML 100 ML INFUS..BTL IV (16:21)
[2025-08-24 16:36] VITALS: BP 176/76; PULSE 88; RESP 22; TEMP 36.5; O2SAT 99
--- NOTE | 2025-08-24 16:36 | PC.NURSE ---
pt returned from CT scan and is complaining of full body itchiness, pt is red/blotchy throughout her body. lungs currently clear.
[2025-08-24 17:57] VITALS: BP 130/71; PULSE 79; RESP 16; TEMP 36.8; O2SAT 95
--- NOTE | 2025-08-24 18:00 | PC.NURSE ---
pt was medicated for allergic reaction, hives/blotchiness have since resolved. vss pt to discharge home
[2025-08-24 18:04] VITALS: BP 130/71; PULSE 79; RESP 16; TEMP 36.8; O2SAT 95
== END 2025-08-24 18:04 | disposition home or self-care (01) ==
PROVIDERS: Student in an Organized Health Care Education/Training Program; Emergency Provider Emergency Medicine; PCP General Practice
DX: N39.0 Urinary tract infection, site not specified (principal); R10.30 Lower abdominal pain, unspecified; R31.9 Hematuria, unspecified; Z79.899 Other long term (current) drug therapy
CPT/HCPCS: 36415; 74177; 80053; 81001; 83605; 83690; 83735; 85025; 87040; 96374; 96375; 99284; J1308; J2270; J2405; J2919; Q9967

== ENCOUNTER → 2025-08-24 15:14 | Outpatient (BNV) | payer OTHER, SELFPAY | PROVIDERS: Emergency Provider Emergency Medicine; PCP General Practice; Visit Provider Radiology Diagnostic Radiology | DX: R10.30 Lower abdominal pain, unspecified (principal) | CPT/HCPCS: 74177 ==

== ENCOUNTER 2025-08-30 19:34 | Emergency (ER) | payer OTHER, SELFPAY ==
--- NOTE | ~2025-08-30 | XR_ITS ---
CLINICAL HISTORY: pain 1 view abdomen Comparison: None provided Findings: No pneumoperitoneum or pneumatosis. Moderate colonic stool burden. No acute fractures. IMPRESSION: Moderate colonic stool burden. This document has been electronically signed by: Ratna Ruiz MD on 08/30/2025 21:24:54
[2025-08-30 19:36] VITALS: BP 145/63; BP 160/84; PULSE 81; PULSE 82; RESP 20; TEMP 36.6; O2SAT 100; O2SAT 99; BMI 33.4
--- OUTSIDE RECORDS SUMMARY | 2025-08-30 19:52 | XMS_ITS | Clinical Summary ---
Author Organization [address] [facility] Address [address] [place] [address] Phone Care Team Providers Care Restaurant Supervisor Name Role Phone Jamar Conley NP, Dipika [...] Last Done Comments Breast Cancer Screening 1955 Colorectal Cancer Screening: Colonoscopy 1955 DTaP,Tdap,and Td Vaccines (1 - Tdap) 1973 Pneumococcal Vaccine: 50+ Ye ars (1 of 1 - PCV) 01/22/2004 Zoster Vaccines (1 of 2) 01/22/2004 Depression Screening 10/27/2024 Falls Risk Assessment 03/26/2025 Hepatitis C Screening [...] LDL Routine 03/26/2025 7:00 AM EDT Other terminal makeup operator (current) drug therapy from Last 3 Months or Most Recently Relevant to Health Maintenance Results * Lipid panel with reflex to direct LDL (03/26/2025 7:00 AM EDT) Cholesterol 147 0 - 200 mg/dL LAB [facility] Triglycerides 63 0 - 150 mg/dL LAB CHEMISTRY METHOD 03/26/2025 12:08 PM [facility] HDL 59 >=40 mg/dL LAB CHEMISTRY METHOD 03/26/2025 12:08 PM [facility] LDL Calculated 75 0 - 100 mg/dL LAB CHEMISTRY METHOD 03/26/2025 12:08 PM [facility] VLDL Cholesterol Vasiliy 12.6 mg/dL LAB CHEMISTRY METHOD 03/26/2025 12:08 PM [facility] Non HDL Chol. (LDL+VLDL) 88 <145 mg/dL LAB CHEMISTRY METHOD 03/26/2025 12:08 PM [facility] Chol/HDL Ratio 2.5 0.0 - 4.4 LAB CHEMISTRY METHOD 03/26/2025 12:08 PM [facility] Blood Venous blood specimen / Unknown Venipuncture / Unknown 03/26/2025 7:00 AM EDT 03/26/2025 11:10 AM EDT Dipika Conley NP LAB BLOOD ORDERABLES Final Re sult [facility] [address] [place] [address], from Last 3 Months or Most Recently Relevant to Health Maintenance Care Teams Restaurant Supervisor Relationship Specialty Start Date End Date Dipika Roldan NP [address] [place] [phone] PCP - General Psychiatry 03/26/25
--- OUTSIDE RECORDS SUMMARY | 2025-08-30 19:52 | XMS_ITS | Encounter Summary ---
Author Organization [employer] Address [address] [place] [address] Care Team Providers Care Chief Science Officer Name Role Phone Jamar Conley NP, Erica Primary Care Provider [phone] Encounter Details Date Type Department Care Team (Late st Contact Info) Description 03/26/2025 Lab Requisition [facility] - Main Lab [address] [place] [address] Dipika Roldan NP [address] [place] [address] Other [facility] (current) drug therapy Social History Tobacco Use [...] LDL Routine 03/26/2025 7:00 AM EDT Other [facility] (current) drug therapy HEMOGLOBIN A1C Routine 03/26/2025 7:00 AM EDT Other [facility] (current) drug therapy GLUCOSE, RANDOM Routine 03/26/2025 7:00 AM EDT Other termite treater (current) drug therapy documented in this encounter Results * Lipid panel with reflex to direct LDL (03/26/2025 7:00 AM EDT) [facility] Cholesterol 147 0 - 200 mg/dL LAB CHEMISTRY METHOD 03/26/2025 12:08 PM EDT [facility] Triglycerides 63 0 - 150 mg/dL LAB CHEMISTRY METHOD 03/26/2025 12:08 PM EDT [facility] HDL 59 >=40 mg/dL LAB CHEMISTRY METHOD 03/26/2025 12:08 PM EDT [facility] LDL Calculated 75 0 - 100 mg/dL LAB CHEMISTRY METHOD 03/26/2025 12:08 PM EDT [facility] VLDL Cholesterol Vasiliy 12.6 mg/dL LAB CHEMISTRY METHOD 03/26/2025 12:08 PM EDT [facility] Non HDL Chol. (LDL+VLDL) 88 <145 mg/dL LAB CHEMISTRY METHOD 03/26/2025 12:08 PM EDT [facility] Chol/HDL Ratio 2.5 0.0 - 4.4 LAB CHEMISTRY METHOD 03/26/2025 12:08 PM EDT [facility] Blood Venous blood specimen / Unknown Venipuncture / Unknown 03/26/2025 7:00 AM EDT 03/26/2025 11:10 AM EDT us Dipika Roldan V, CIRCUIT DESIGN ENGINEER LAB BLOOD ORDERABLES Final Re sult Performing Organization Address [facility]/ZIP Co de Phone Number [facility] [address] [place] [address], * Glucose, random (03/26/2025 7:00 AM EDT) Glucose 97 70 - 100 mg/dL LAB CHEMISTRY METHOD 03/26/2025 12:07 PM EDT [facility] Blood Venous blood specimen / Unknown Venipuncture / Unknown 03/26/2025 7:00 AM EDT 03/26/2025 11:10 AM EDT us Dipika Staple V, CIRCUIT DESIGN ENGINEER LAB BLOOD ORDERABLES Final Re sult Performing Organization Address City/[facility]/ZIP Co de Phone Number [facility] [address] [place] [address], [place] [phone] * Hemoglobin A1c (03/26/2025 7:00 AM EDT) Hemoglobin A1C 5.1 <6.5 % LAB CHEMISTRY METHOD 03/27/2025 8:44 AM EDT [facility] Mean Bld Glu Estim. 100 mg/dL LAB CHEMISTRY METHOD 03/27/2025 8:44 AM EDT [facility] Blood Venous blood specimen / Unknown Venipuncture / Unknown 03/26/2025 7:00 AM EDT 03/26/2025 11:10 AM EDT Dipika Conley NP LAB BLOOD ORDERABLES Final Re sult [facility] [address] [place] [address], documented in this encounter Visit Diagnoses Diagnosis Other [facility] (current) drug therapy documented in this encounter Care Teams Chief Science Officer Relationship Specialty Start Date End Date Dipika Roldan NP [address] [place] [phone] PCP - General Psychiatry 03/26/25 documented as of this encounter
--- OUTSIDE RECORDS SUMMARY | 2025-08-30 19:52 | XMS_ITS | Encounter Summary ---
Author Organization [employer] Address [address] [place] [address] Care Team Providers Care Tank Farm Operator Name Role Phone Jamar Conley NP, Erica Primary Care Provider [phone] Encounter Details Date Type Department Care Team (Late st Contact Info) Description 03/26/2025 Lab Requisition [facility] - Main Lab [address] [facility] [place] [address] Dipika Roldan NP [address] [place] [phone] Social History Tobacco Use Types Packs/Day [...] on filedocumented in this encounter Care Teams Tank Farm Operator Relationship Specialty Start Date End Date Dipika Roldan NP [address] [place] [phone] PCP - General Psychiatry 03/26/25 documented as of this encounter
--- NOTE | 2025-08-30 19:59 | PC.NURSE ---
PT biba from home CC of burning suprapubic pain radiating to bilateral flanks/lower back that onset x3 weeks ago. PT was Dx with a UTI and completed her ABX regimen with no relief, states symptoms are worsening. PT currently reports 10/10 suprapubic pain and burning on urination along with increased urination.
[2025-08-30 20:11] LABS: MANUAL DIFF FLAG NO
[2025-08-30 20:12] LABS: Hematocrit 37.2 % (37.0-47.0); Hemoglobin 11.9 g/dl (12.0-16.0); Imm Gran Abs Auto 0.04 X10*3/uL (0.00-0.03); Imm Gran Pct Auto 0.3 % (0.0-0.4); Lymphocytes Absolute Auto 3.3 X10*3/uL (1.2-4.9); Mean Corpuscular HGB Conc 32.0 g/dl (31.0-35.0); Mean Corpuscular Hemoglobin 29.8 pg (27.0-33.0); Mean Corpuscular Volume 93.0 fL (80.0-98.0); NRBC Abs Auto 0.000 X10*3/uL (0.0-0.012); NRBC Pct Auto 0.0 /100WBC (0.0-0.2); Platelet Count 362 X10*3/uL (160-400); Red Blood Count 4.00 X10*6/uL (4.20-5.50); White Blood Count 12.2 X10*3/uL (4.8-10.8)
--- NOTE | 2025-08-30 20:19 | ED_ITS ---
HPI - Female Genitourinary General Chief complaint: Urogenital-Female Stated complaint: unresolved UTI x2-3 wks w/burning & back pain, n/v Time Seen by Provider: 08/30/25 20:15 Source: patient and family Limitations: language barrier and other (Some degree of cognitive impairment) History of Present Illness ED Provider: Catherine Figueroa PA-C HPI Narrative: 70-year-old female with a history of GERD, constipation, asthma, PTSD, depression and anxiety presents with dysuria x3 weeks. Patient has had suprapubic burning sensation, that radiates to the low back bilaterally. Patient states she was treated for a urinary tract infection, however her symptoms are persisting. Denies nausea vomiting or fever. Related Data Home Medications ?Medication ?Instructions ?Recorded ?Confirmed acetaminophen 500 mg tablet 500 - 1,000 mg PO Q8H PRN CHRONIC 06/28/22 09/01/25 PAIN albuterol sulfate 90 mcg/actuation 2 puff inhalation Q 4H PRN 06/28/22 09/01/25 aerosol inhaler (Ventolin HFA) Respiratory Distress fluticasone 250 mcg-salmeterol 50 1 ea inhalation BID 06/28/22 09/01/25 mcg/dose blistr powdr for inhalation fluticasone propionate 50 1 spray intranasal DAILY PRN 06/28/22 09/01/25 mcg/actuation nasal allergies spray,suspension ipratropium 0.5 mg-albuterol 3 mg 3 ml inhalation Q6H PRN MODERATE 06/28/22 09/01/25 (2.5 mg base)/3 mL nebulization PERSISTENT ASTHMA WITH ACUTE soln EXACERBATION loratadine 10 mg tablet 10 mg PO DAILY PRN allergies 06/28/22 09/01/25 omeprazole 20 mg capsule,delayed 20 mg PO DAILY 09/01/25 release trazodone 100 mg tablet 100 mg PO BEDTIME PRN Sleep 06/28/22 09/01/25 venlafaxine 150 mg 150 mg PO DAILY 06/28/2204/20 capsule,extended release 24 hr calamine 8 %-zinc oxide 8 % lotion 1 appl topical TITI Y PRN itch 07/19/25 09/01/25 cholecalciferol (vitamin D3) 50 50 mcg PO DAILY 09/01/25 mcg (2,000 unit) capsule latanoprost 0.005 % eye drops 1 drp ophthalmic (eye) B EDTIME 07/19/25 09/01/25 melatonin 3 mg tablet 3 mg PO BEDTIME PRN Sleep 09/01/25 sennosides 8.6 mg capsule (senna) 8.6 mg PO DAILY PRN Constipation 07/19/25 09/01/25 brinzolamide 1 %-brimonidine 0.2 % 1 drp ophthalmic (e ye) BID 08/31/25 09/01/25 eye drops,suspension (Simbrinza) ketorolac 0.5 % eye drops 1 drp ophthalmic (eye) TID 1 10/31/24 09/01/25 mirtazapine 7.5 mg tablet 7.5 mg PO BEDTIME 08/31/25 1 11/01/24 Previous Rx's ?Medication ?Instructions ?Recorded sucralfate 1 gram tablet (Carafate) 2 g (2 x 1 gram) P O DAILY #60 tabs 07/19/25 cefuroxime axetil 500 mg tablet 500 mg PO BID #20 tabs 08/24/25 Allergies Allergy/AdvReac Type Severity Reaction Status Date / Time avocado Allergy Unknown Rash Verified 08/30/25 19:44 banana Allergy Unknown Rash Verified 08/30/25 19:44 cholestyramine Allergy Unknown Rash Verified 08/30/25 19:44 diphenhydramine (From Allergy Unknown Rash Verified 08/30/25 19:44 Benadryl) grape Allergy Unknown Rash Verified 08/30/25 19:44 seafood Allergy Unknown Rash Verified 08/30/25 19:44 Review of Systems 2 Review of Systems: Yes all other systems are reviewed and are negative Constitutional: Constitutional: Denies fatigue and Denies fever(s) Cardiovascular: Cardiovascular: Denies chest pain and Denies dyspnea Respiratory: Respiratory: Denies cough and Denies dyspnea Gastrointestinal: Gastrointestinal: Denies abdominal pain, Denies nausea and Denies vomiting Genitourinary: Genitourinary: Reports dysuria and Denies flank pain Musculoskeletal: Musculoskeletal: Reports back pain Endocrine: Endocrine: Denies fatigue PMF Past Medical History Attestation statement: The following information was validated with the patient. Surgical History Hx of cholecystectomy H/O total hysterectomy H/O section History of esophagogastroduodenoscopy (EGD) H/O colonoscopy History of hysterectomy Social History Social History Alcohol intake: never Patient Tobacco Use Status: Never used Tobacco Current occupational status: disabled Current occupation: right hand dominant Physical Exam 2 Vital Signs: Vital Signs: Last Vital Signs Temp 97.7 F 09/02/25 11:58 Pulse 77 09/02/25 11:58 Resp 14 09/02/25 11:58 BP 115/65 09/02/25 11:58 Pulse Ox 96 09/02/25 11:58 O2 Del Method Room Air 09/02/25 11:58 BMI result Body Mass Index 33.4 Const: Other: Alert, Orientation/consciousness: patient oriented x3 Resp: Effort & Inspection: normal respiratory effort Cardio: Other: Normal peripheral perfusion GI: Other: Mild tenderness over suprapubic : General: Yes no CVA tenderness Back/Spine/Pelvis: Back: no CVA tenderness Skin: Other: Warm dry no rash Neuro: Other: Antalgic gait General: patient oriented x3, no focal motor deficits and CN's II-XI intact bilaterally Psych: Other: Cooperative Course Reevaluation(s) Reevaluation #2: Time: 04:05 Date: 08/31/25 Provider: SABINE Sanders Patient in physician observation for psychiatric evaluation.? No acute events reported overnight. No current complaints. VS stable.? Patient is in bed search status/pending CARE team evaluation. Will continue to monitor. Time: 04:05 Reevaluation #3: Time: 09:13 Date: 08/31/25 Provider: SABINE Ham Patient in physician observation for case management needs. No acute events reported overnight.? No current issues or complaints. VS stable. Care team has evaluated patient - deferring to case management. See care note. Patient is pending PT/CM eval and psych consults. Will continue to monitor. 8:10 AM 09/01/2025 (Sophy Patel PHYSICAL EDUCATION DEPARTMENT CHAIR): Physician observation continued, no overnight events reported by nursing. Vitals stable. Cleared by PT and CARE team, pending psych eval. 5:20 PM 09/01/2025 (Sophy Patel PHYSICAL EDUCATION DEPARTMENT CHAIR): Per Stephie from , patient will dc home at 11am tomorrow with [facility]. Additional Reevaluation(s): SABINE Baxter Physician observation continued. Uneventful night. Vital signs stable. No complaints from nursing overnight. Med reconciliation reviewed and done. Pending disposition. Will continue to monitor. Medications Administered Discontinued Medications Generic Name Dose Route Start Last Admin Trade Name Chanelle PRN Reason Stop Dose Admin Bisacodyl 10 mg 08/31/25 01:06 08/31/25 01:35 Bisacodyl 5 Mg Tablet.Dr PO 08/31/25 01:07 10 mg ONCE ONE Administration Brimonidine Tartrate 1 drop 09/02/25 09:00 09/02/25 08:57 Brimonidine Tartrate 0.2% Oph 5 Ml Bottle EYE-BOTH 1 drop TID MYLENE Administration Cefuroxime Axetil 500 mg 09/02/25 09:00 09/02/25 08:58 Cefuroxime Axetil 500 Mg Tablet PO 500 mg BID MYLENE Administration Dicyclomine HCl 20 mg 08/30/25 20:20 08/30/25 20:38 Dicyclomine Hcl 10 Mg Capsule PO 08/30/25 20:21 20 mg ONCE ONE Administration Dorzolamide HCl 1 drop 09/02/25 09:00 09/02/25 09:02 Dorzolamide Hcl 2 % Ophth Lizzy 10 Ml Drpbtl EYE-BOTH Not Given TID MYLENE Sodium Chloride 500 mls @ 500 mls/hr 08/30/25 20:20 08/30/25 22:49 Ns IV 08/30/25 21:19 Infused .Q1H ONE Infusion Ketorolac Tromethamine 1 drop 09/02/25 09:00 09/02/25 08:57 Ketorolac Tromethamine 0.5% Op 5 Ml Drops EYE-BOTH 1 drop TID MYLENE Administration Lorazepam 1 mg 08/30/25 23:09 08/30/25 23:19 Lorazepam 1 Mg Tablet PO 08/30/25 23:10 1 mg ONCE ONE Administration Magnesium Hydroxide 30 ml 08/31/25 01:15 09/01/25 20:26 Milk Of Magnesia 30 Ml Oral.Susp PO 30 ml BEDTIME MYLENE Administration Omeprazole 20 mg 09/02/25 09:00 09/02/25 08:37 Omeprazole 20 Mg Capsule.Dr PO 20 mg DAILY MYLENE Administration Phenazopyridine HCl 200 mg 08/30/25 20:20 08/30/25 20:38 Phenazopyridine Hcl 200 Mg Tablet PO 08/30/25 20:21 200 mg ONCE ONE Administration Sucralfate 2 gm 09/02/25 09:00 09/02/25 08:36 Sucralfate 1 Gm Tablet PO 2 gm DAILY MYLENE Administration Trazodone HCl 100 mg 08/30/25 23:09 08/30/25 23:19 Trazodone Hcl 100 Mg Tablet PO 08/30/25 23:10 100 mg ONCE ONE Administration Trimethoprim/Sulfamethoxazole 1 tab 08/30/25 20:54 08/30/25 21:48 Sulfamethox/Trimeth 800/160 Tablet PO 08/30/25 20:55 1 tab ONCE ONE Administration Trimethoprim/Sulfamethoxazole 1 tab 09/01/25 03:15 09/02/25 08:37 Sulfamethox/Trimeth 800/160 Tablet PO 1 tab BID MYLENE Administration Venlafaxine HCl 150 mg 09/02/25 09:00 09/02/25 08:58 Venlafaxine Hcl Er 150 Mg Cap.Er.24h PO 150 mg DAILY MYLENE Administration Vitamin D 50 mcg 09/02/25 09:00 09/02/25 08:37 Cholecalciferol (Vitamin D3) 25 Mcg Tablet PO 50 mcg DAILY MYLENE Administration Medical Decision Making Medical Decision Making MDM Narrative: 70-year-old female with a history of GERD, constipation, asthma, depression and anxiety presents with dysuria x3 weeks. Patient has had suprapubic burning sensation, that radiates to the low back bilaterally. Patient states she was treated for a urinary tract infection, however her symptoms are persisting. Denies nausea vomiting or fever. Problem: Age, chronic constipation, likely development of cognitive impairment/dementia History: Per patient and her friend who is at bedside I have considered the following differential diagnoses: Onset of dementia, UTI, pyelonephritis, renal colic, constipation Plan:The patient is accompanied by a concerned friend who was trying to help organize the patient's care. Apparently the patient has been cared for by a family member who is being paid to do so. The patient has been exhibiting paranoia, delusions, she is hiding her medications. The patient was seen days ago in the emergency room treated for urinary tract infection, however she is not taking her medication because she is hiding them. The caregiver is not making sure she is taking her meds. The patient still has a urinary tract infection. There is concern that the patient is developing underlying dementia. We will reach out to CM/PT, I think the patient also needs the care team and psychiatric evaluation. Medically, screening labs including a urinalysis are in process, it is likely the patient is still has a urinary tract infection, she has not been taking her medication. She is afebrile with stable vitals, she has no CVA tenderness, no active nausea vomiting or fever to suggest renal colic versus pyelonephritis. Imaging not warranted. I am obtaining a KUB, the patient is chronically constipated, this is the likely trigger for her urinary tract infection. I have independently reviewed the following tests: Labs: Leukocytosis, not anemic, no electrolyte abnormality, urine is infected in appearance we do not have a prior urine culture to view KUB:indings: No pneumoperitoneum or pneumatosis. Moderate colonic stool burden. No acute fractures. IMPRESSION: Moderate colonic stool burden. Adding on Dulcolax and milk of Mag Differential Diagnosis Differential Diagnoses: The differential diagnosis associated with the presentation includes See medical decision-making Admission/Observation Consideration of admission/observation: Escalation of care including admission/observation considered Observation Consult Healthcare Provider Management of the patient was discussed with: Behavioral Health Provider Care team, psych consult, case management and PT Lab Data MDM Lab Attestation statement: I reviewed the patient's lab results. 08/30/25 20:03 08/30/25 20:03 Labs: Lab Results 08/30/25 08/30/25 Range/Units 20:03 20:33 WBC 12.2 H (4.8-10.8) X10*3/uL RBC 4.00 L (4.20-5.50) X10*6/uL Hgb 11.9 L (12.0-16.0) g/dl Hct 37.2 (37.0-47.0) % MCV 93.0 (80.0-98.0) fL MCH 29.8 (27.0-33.0) pg MCHC 32.0 (31.0-35.0) g/dl RDW 12.9 (11.0-16.0) % Plt Count 362 (160-400) X10*3/uL MPV 8.8 L (9.4-12.3) fL Immature Gran % (Auto) 0.3 (0.0-0.4) % Neut % (Auto) 63.8 (45-73) % Lymph % (Auto) 27.0 (20-40) % Gentry % (Auto) 7.7 (2-11) % Eos % (Auto) 0.8 (0-4) % Baso % (Auto) 0.4 (0-2) % Lymph # (Auto) 3.3 (1.2-4.9) X10*3/uL Gentry # (Auto) 0.9 (0.1-1.2) X10*3/uL Eos # (Auto) 0.1 (0.0-0.4) X10*3/uL Baso # (Auto) 0.1 (0.0-0.2) X10*3/uL Abs Immat Gran (auto) 0.04 H (0.00-0.03) X10*3/uL Absolute Neuts (auto) 7.8 (2.0-8.3) x10*3/uL Absolute Nucleated RBC 0.000 (0.0-0.012) X10*3/uL Nucleated RBC % (auto) 0.0 (0.0-0.2) /100WBC Sodium 142 (135-145) mmol/L Potassium 3.7 (3.3-5.1) mmol/L Chloride 109 H (96-108) mmol/L Carbon Dioxide 27 (22-29) mmol/L Anion Gap 10 L (12-20) BUN 20 H (9-16) mg/dL Creatinine 0.75 (0.5-1.4) mg/dL Estim Creat Clear Calc 63.3 Estimated GFR > 60 Random Glucose 104 (60-115) mg/dL Calcium 8.9 (8.4-10.2) mg/dL Total Bilirubin 0.2 (0.0-1.0) mg/dL AST 15 (5-31) U/L ALT 12 (0-31) U/L Alkaline Phosphatase 61 (39-117) U/L Total Protein 6.5 (6.5-8.0) g/dL Albumin 3.9 (3.5-5.0) g/dL Urine Color Yellow Urine Appearance Cloudy Urine pH 5.5 (5.0-9.0) Ur Specific [place] >= 1.030 H (1.005-1.025) Urine Protein Trace (Neg-Trace) mg/dL Urine Glucose (UA) Negative (Negative) mg/dL Urine Ketones Trace (Negative) mg/dL Urine Blood Negative (Negative) Urine Nitrite Negative (Negative) Ur Leukocyte Esterase Moderate (2+) H (Negative) Urine RBC 0-2 (0-2) /HPF Urine WBC 21-50 H (0-5) /HPF Ur Squamous Epith Cells 11-20 (0-2) /HPF Urine Bacteria 2+ (None Seen) Hyaline Casts 0-2 (0-2) /LPF Radiology Impression Discussion of test interpretation with radiology: I have reviewed the radiologist's reading. Critical Care Time Critical Care Time Critical Care Time: No Discharge Plan Discharge Clinical Impression: Constipation, Urinary tract infection, Paranoid delusion Patient Disposition: Home, Self-Care Instructions: Urinary Tract Infection in Older Adults (ED) Additional Instructions: Take your medications as prescribed. If you were prescribed antibiotics today, it is important that you take your medication to their entirety, do not skip any doses, do not finish them early. Follow-up with your primary care provider this week. Return to the emergency department with new or worsening symptoms. Such as fevers, chills, chest pain, shortness of breath, nausea, vomiting, dizziness, headache, vision changes, lethargy In case of emergency call 911 Prescriptions: No Action cefuroxime axetil 500 mg tablet 500 mg PO BID Qty: 20 0RF Rx Instructions: PRESCRIBED 08/25/25 FOR 10 DAYS SUPPLY ketorolac 0.5 % drops 1 drp ophthalmic (eye) TID mirtazapine 7.5 mg tablet 7.5 mg PO BEDTIME Simbrinza 1-0.2 % drops,suspension 1 drp ophthalmic (eye) BID omeprazole 20 mg capsule,delayed release(DR/EC) 20 mg PO DAILY trazodone 100 mg tablet 100 mg PO BEDTIME PRN (Reason: Sleep) fluticasone propion-salmeterol 250-50 mcg/dose blister with device 1 ea inhalation BID loratadine 10 mg tablet 10 mg PO DAILY PRN (Reason: allergies) fluticasone propionate 50 mcg/actuation spray,suspension 1 spray intranasal DAILY PRN (Reason: allergies) albuterol sulfate [Ventolin HFA] 90 mcg/actuation HFA aerosol inhaler 2 puff inhalation Q4H PRN (Reason: Respiratory Distress) acetaminophen 500 mg tablet 500 - 1,000 mg PO Q8H PRN (Reason: CHRONIC PAIN) venlafaxine 150 mg capsule,extended release 24hr 150 mg PO DAILY ipratropium-albuterol 0.5 mg-3 mg(2.5 mg base)/3 mL solution for nebulization 3 ml inhalation Q6H PRN (Reason: MODERATE PERSISTENT ASTHMA WITH ACUTE EXACERBATION) latanoprost 0.005 % drops 1 drp ophthalmic (eye) BEDTIME melatonin 3 mg tablet 3 mg PO BEDTIME PRN (Reason: Sleep) calamine-zinc oxide 8-8 % lotion 1 appl topical DAILY PRN (Reason: itch) cholecalciferol (vitamin D3) 50 mcg (2,000 unit) capsule 50 mcg PO DAILY sucralfate [Carafate] 1 gram tablet 2 g PO DAILY Qty: 60 3RF senna 8.6 mg capsule 8.6 mg PO DAILY PRN (Reason: Constipation) Referrals: [facility] [Outside] Marlys Palma MD [Primary Care Provider, Internal Medicine] Interventions: ED Discharge Assessment Last Done: 09/02/25 11:58 Discharge Date/Time: 09/02/25 11:59 Print Language: [place]
[2025-08-30 20:28] LABS: Alanine Aminotransferase 12 U/L (0-31); Albumin Level 3.9 g/dL (3.5-5.0); Alkaline Phosphatase 61 U/L (39-117); Anion Gap 10 (12-20); Aspartate Amino Transferase 15 U/L (5-31); Blood Urea Nitrogen 20 mg/dL (9-16); Calcium 8.9 mg/dL (8.4-10.2); Carbon Dioxide 27 mmol/L (22-29); Chloride 109 mmol/L (96-108); Creatinine Clr Calc Pharmacy 63.3; Estimated Glomerular Filt Rate > 60; Potassium 3.7 mmol/L (3.3-5.1); Sodium 142 mmol/L (135-145); Total Protein 6.5 g/dL (6.5-8.0)
[2025-08-30 20:41] LABS: Appearance Urine Cloudy; Glucose Urine UA Negative (Negative); PH 5.5 (5.0-9.0); Specific Gravity - Urine >= 1.030 (1.005-1.025); UMIC TRIGGER UACC YES
[2025-08-30 20:50] LABS: UACC Culture Trigger YES
[2025-08-30] MEDS: Sulfamethox/Trimeth 800/160 TABLET 1 TAB PO (21:48)
--- NOTE | 2025-08-30 21:55 | PC.NURSE ---
pt medicated per dec, tolerated whole well with water
[2025-08-30 21:57] VITALS: BP 169/75; PULSE 87; RESP 20; TEMP 36.7; O2SAT 97
--- NOTE | 2025-08-30 22:28 | MHC.CM.ED ---
Addendum entered by Selina Leon 08/30/25 22:53: Patient may need VNA for daily medication management if cleared by psych to return to home. Pt has [facility]. Encouraged pt and friend/HCP Lashell to call [facility] care navigator for more help at home. Pt has a niece who is her STAMPING PRESS OPERATOR-24 hours/week. Pt and friend do not feel she care for her much. Addendum entered by Selina Leon 08/30/25 22:34: CM met with patient and medical grade shoemaker to discuss HCP. HCP reviewed completed and signed. HCP Lashell Mcdonald-friend- [phone]. Copies given. Uploaded into [employer] and [employer]. Original Note: CM received consult for this patient. Patient has been non-compliant with medications and psych meds. Per friendErika, pt has been having mood swings, not leaving the house, Sleeping a lot and having no safety awareness. Pt is Sami speaking. Awaiting medical grade shoemaker. Pt wants to make HCP, naming Erika Mcdonald as HCP. Erika tells CM she cannot even find the patients medications in the home. Pt sees a psychiatrist and a therapist.
--- NOTE | 2025-08-30 22:40 | PC.NURSE ---
per family member at bedside, pt elopement risk. Camera placed on pt for safety at this time.
--- NOTE | 2025-08-30 23:18 | PC.NURSE ---
md aware of pt bp, medicated per mar
--- NOTE | 2025-08-30 23:27 | PC.NURSE ---
pt moved into ed bed 22 to be closer to nurses station for patient safety
[2025-08-31] MEDS: Milk of Magnesia 30 ML ORAL.SUSP PO (01:35)
[2025-08-31 06:09] VITALS: BP 127/61; PULSE 72; RESP 15; TEMP 36.8; O2SAT 96
--- NOTE | 2025-08-31 06:26 | PC.NURSE ---
elopement band placed on pt at this time for safety, pt ambulatory to bathroom with steady gait
--- NOTE | 2025-08-31 10:19 | MHC.CM.ED ---
Patient remains in ER. Cleared by Care Team and Physical therapy. Psych consult pending. Continue to monitor for d/c needs.
--- NOTE | 2025-08-31 10:33 | PC.NURSE ---
report given to overflow
--- NOTE | 2025-08-31 10:44 | PC.NURSE ---
Alert and oriented, up and walking to bathroom. Asking for a printed bus schedule so she can take the bus to [place]. Bus schedule provided
[2025-08-31 11:03] VITALS: BP 149/80; PULSE 88; RESP 16; TEMP 36.9; O2SAT 98
[2025-08-31 13:33] VITALS: BP 159/82; PULSE 74; RESP 18; TEMP 36.8; O2SAT 98
[2025-08-31 20:42] VITALS: BP 120/61; PULSE 77; RESP 12; TEMP 36.6; O2SAT 98
[2025-09-01] MEDS: Sulfamethox/Trimeth 800/160 TABLET 1 TAB PO ×3 (03:47→20:26)
[2025-09-01 05:26] VITALS: BP 134/68; PULSE 75; RESP 18; TEMP 36.7; O2SAT 98
--- NOTE | 2025-09-01 10:48 | PC.NURSE ---
[facility] Approx @ 0715 ?A&O x4,? RA, clear lung sounds. NO pain reported. NO IV access.? Self repo. Refuses Fall risk precaution.??
--- NOTE | 2025-09-01 10:51 | PC.NURSE ---
[facility] Approx @ 0715 ?A&O x4,? On RA, Dim. lung sounds. Colostomy & suprapubic cath.? Impaired skin integrity. Reposition maintained.? Fall risk precaution in place.?? ?NO pain reported. 20 L fore arm.
--- NOTE | 2025-09-01 11:40 | PHA.MEDREC ---
Pharmacy Consult ? Medication Reconciliation Pharmacy has completed the medication reconciliation.Med rec completed based on pharmacy claims history only. Patient not a good historian and left message with family member on file.
[2025-09-01 14:20] VITALS: BP 124/66; PULSE 69; RESP 16; O2SAT 99
--- NOTE | 2025-09-01 16:07 | MHC.CM.ED ---
Patient remains in ER overflow. Received notification from Dr Bentley that psych consult was not completed because patient is at baseline. Patient will need assistance with medication management. Referral made to [facility]. Continue to monitor for d/c needs.
--- NOTE | 2025-09-01 17:21 | MHC.CM.ED ---
Addendum entered by Selina Leon 09/01/25 17:59: Pt aware of discharge plan for tomorrow 09/02 @11am via [facility]. [facility] for medication management. Pt is in agreement. No questions. open tenter operator used as patient is Tajik speaking. Original Note: Pt will discharge to home tomorrow 09/02 at 11am via [facility]. Pt has decreased safety awareness and decreased cognition. Provider, primary RN and HCP aware. Pt will have [facility] for behavioral assessment and medication management.
[2025-09-01 20:26] VITALS: BP 136/78; PULSE 73; RESP 20; TEMP 36.7; O2SAT 99
[2025-09-01] MEDS: Milk of Magnesia 30 ML ORAL.SUSP PO (20:26)
[2025-09-02 06:00] VITALS: BP 114/59; PULSE 72; RESP 18; TEMP 36.7; O2SAT 97
--- NOTE | 2025-09-02 06:09 | PC.NURSE ---
Assumed care of patient at 0300 in ED OVF. Alert and Oriented x 3 Room Air Colostomy and suprapubic cath Bed in lowest setting, locked, alarm and call alaniz in place. Plan for patient to discharge home today
[2025-09-02] MEDS: Sulfamethox/Trimeth 800/160 TABLET 1 TAB PO (08:37)
[2025-09-02] MEDS: Ketorolac Tromethamine 0.5% Op 5 ML DROPS 1 DROP EYE-BOTH (08:57)
[2025-09-02] MEDS: Brimonidine Tartrate 0.2% Oph 5 ML BOTTLE 1 DROP EYE-BOTH (08:57)
[2025-09-02] MEDS: Venlafaxine HCl ER 150 MG CAP.ER.24H PO (08:58)
--- NOTE | 2025-09-02 10:26 | PC.NURSE ---
Pt has been ambulatory in department. axox3. awaits ride home. NO complaints at this time.
[2025-09-02 11:53] VITALS: BP 115/65; PULSE 77; RESP 14; TEMP 36.5; O2SAT 96
[2025-09-02 11:58] VITALS: BP 115/65; PULSE 77; RESP 14; TEMP 36.5; O2SAT 96
== END 2025-09-02 11:59 | disposition home or self-care (01) ==
PROVIDERS: Emergency Provider Emergency Medicine; PCP General Practice
DX: N39.0 Urinary tract infection, site not specified (principal); F32.9 Major depressive disorder, single episode, unspecified; F22 Delusional disorders; K59.09 Other constipation; F43.10 Post-traumatic stress disorder, unspecified; F41.9 Anxiety disorder, unspecified; Z79.899 Other long term (current) drug therapy
CPT/HCPCS: 36415; 74018; 80053; 81001; 85025; 87086; 96360; 96361; 97161; 99285; S9485

== ENCOUNTER → 2025-08-30 20:46 | Outpatient (BNV) | payer OTHER, SELFPAY | PROVIDERS: Emergency Provider Emergency Medicine; PCP General Practice; Visit Provider Student in an Organized Health Care Education/Training Program | DX: M54.50 Low back pain, unspecified (principal) | CPT/HCPCS: 74018 ==